=== PATIENT | male | born 1950 | race Two or more races ===

== ENCOUNTER 2021-10-21 05:14 | Inpatient (IN) | payer OTHER, MEDICAID ==
[2021-10-21] VITALS (44 sets, daily range): BP systolic 78–205; BP diastolic 41–115
[~2021-10-21] VITALS: Ht 182.9 cm; Wt 137.9 kg
[~2021-10-21 05:14] MED LIST: ASPI1TAB20 PO; FURO1TAB33 PO; GLIP5TAB12 PO; INSLANTI SC; INSLISPI SC; LISI20TA28 PO; METF-372 PO; METO-158 PO; SIMV-13 PO
[2021-10-21] MEDS ORDERED: PIPERACILLIN-TAZO 4.5GM 100 ML IV ONE (06:00)
[2021-10-21] MEDS ORDERED: VANCOMYCIN 1GM/250ML 250 ML IV ONE ×2 (06:00)
[2021-10-21] MEDS ORDERED: ACETAMINOPHEN 500 MG TAB PO ONE (06:00)
[2021-10-21] MEDS ORDERED: dilTIAZem 25 MG/5 ML VIAL IV ONE ×2 (06:39→06:45)
[2021-10-21] MEDS ORDERED: ACETAMINOPHEN 120 MG RECT SUPP PR ONE (06:44)
[2021-10-21] MEDS ORDERED: ACETAMINOPHEN 650 MG RECT SUPP PR ONE ×2 (06:45)
[2021-10-21] MEDS ORDERED: FUROSEMIDE 100 MG/10ML VIAL IV ONE (06:45)
[2021-10-21] MEDS ORDERED: dilTIAZem 125mg/125ml BAG KIT 125 ML IV ONE (06:45)
[2021-10-21 07:02] LABS: Basophils # (auto) 0.1 10 ^3/uL (0-0.2); Eosinophils # (auto) 0 10 ^3/uL (0-0.8); Hematocrit 46.7 % (41.0-53.0); Lymphocytes # (auto) 1.1 10 ^3/uL (0.4-5.4); Mean Corpuscular Hemoglobin 32.5 pg (28.0-32.0); Mean Corpuscular Hgb Conc. 34.2 g/dL (32.0-36.0); Mean Corpuscular Volume 95.2 fL (80.0-100.0); Monocytes # (auto) 0.2 10 ^3/uL (0-1.3); Neutrophils # (auto) 7.9 10 ^3/uL (1.6-8.6); Nucleated Red Blood Cells % 0.3 %; Red Cell Distribution Width 15.3 % (11.8-14.3); White Blood Cell 9.3 10^3/uL (4.4-10.8)
[2021-10-21 07:36] LABS: Potassium 4.9 mmol/L (3.5-5.1)
[2021-10-21 08:10] LABS: INR 1.42 (0.9-1.15); Partial Thromboplastin Time 29.3 sec (23.6-33.0)
[2021-10-21 08:13] LABS: Albumin 3.1 g/dL (3.4-5.0); BUN/Creatinine Ratio 20.4; Bilirubin, Total 3.2 mg/dL (0.2-1.0); Calcium 8.7 mg/dL (8.5-10.1)
[2021-10-21 08:29] LABS: Urine Bacteria MANY /hpf (None Seen); Urine Blood 3+ /uL (Negative); Urine Specific Gravity 1.011 (1.001-1.035); Urine WBC 194 /hpf (0 - 3); Urine WBC Clumps PRESENT /hpf (None Seen)
[2021-10-21] MEDS: NOREPINEPHRINE 8 MG/250ML KIT 250 ML IV SCH (08:30)
[2021-10-21] MEDS ORDERED: ASPirin 325 MG TAB PO ONE (08:45)
[2021-10-21] MEDS ORDERED: NOREPINEPHRINE 8 MG/250ML KIT 250 ML IV ONE (08:52)
[2021-10-21] MEDS ORDERED: DEXTROSE (50%) 50ML SYRG IV PRN (09:00)
[2021-10-21] MEDS ORDERED: VANCOMYCIN PER PHARMACY 0 MG IV SCH (09:00)
[2021-10-21] MEDS ORDERED: DOCUSATE SOD 100 MG CAP PO PRN (09:00)
[2021-10-21] MEDS: cefTRIAXone 1GM/50ML D5W 50 ML IV SCH (09:16)
[2021-10-21] MEDS: ASPirin 81 mg TAB PO SCH (09:22)
[2021-10-21] MEDS: MULTIPLE VITAMIN TAB PO SCH (09:23)
[2021-10-21] MEDS: ASCORBIC ACID 500 MG TAB PO SCH ×2 (09:23→21:15)
[2021-10-21] MEDS: ZINC SULFATE 220mg CAP or TAB PO SCH (09:23)
[2021-10-21] MEDS: FUROSEMIDE 40 MG/4 ML VIAL IV SCH (09:24)
[2021-10-21] MEDS ORDERED: MORPHINE SULFATE INJECTION 2 MG/ML SYRG IV PRN (09:30)
[2021-10-21] MEDS ORDERED: NITROGLYCERIN 0.4 MG SL TAB SL PRN (09:30)
[2021-10-21] MEDS ORDERED: dilTIAZem HCL 180MG ER CAP PO SCH (10:00)
[2021-10-21] MEDS ORDERED: METOPROLOL TARTRATE 25 MG TAB PO SCH (10:00)
[2021-10-21] MEDS: AZITHROMYCIN 500MG/ 250ML 250 ML IV SCH (10:12)
[2021-10-21] MEDS ORDERED: InsuLIN REG 1unit/0.01ml Soln (100units/ml) SC SCH ×2 (11:30→22:00)
[2021-10-21] MEDS ORDERED: ACCU-CHEK COMFORT CURVE STRIP VI SCH (11:30)
[2021-10-21] MEDS: SODIUM CHLOR 0.9% PF (SALINE LOCK) 10ML VIAL/SYR IV SCH ×2 (14:45→21:15)
[2021-10-21] MEDS ORDERED: SODIUM CHLORIDE 0.9% 500 ML IV STA (17:29)
[2021-10-21] MEDS: ACCU-CHEK COMFORT CURVE STRIP VI SCH ×2 (17:35→21:16)
[2021-10-21] MEDS: InsuLIN REG 1unit/0.01ml Soln (100units/ml) SC SCH ×2 (17:35→21:21)
[2021-10-21] MEDS: ACETAMINOPHEN 325 MG TAB PO PRN (18:20)
[2021-10-21] MEDS: INSULIN LANTUS (GLARGINE) 1 /0.01ml (100units/ml) SC SCH (18:35)
[2021-10-21 19:55] LABS: Lactic Acid w/Reflex 6.2 mmol/L (0.4-2.0)
[2021-10-21 19:57] LABS: Hematocrit 41.7 % (41.0-53.0); Hemoglobin 14.3 g/dL (13.5-17.5); Mean Corpuscular Hemoglobin 32.5 pg (28.0-32.0); Mean Corpuscular Hgb Conc. 34.2 g/dL (32.0-36.0); Red Blood Cells 4.39 10^6/uL (4.5-5.90); Red Cell Distribution Width 15.4 % (11.8-14.3); White Blood Cell 3.9 10^3/uL (4.4-10.8)
[2021-10-21 20:09] LABS: Basophils % (manual) 0 (0.0-2.0); Blast Cells 0; Eosinophils % (manual) 0 (0-7); Metamyelocytes % 0; Myelocytes % 0; Promyelocytes % 0; Reactive Lymphocytes 0
[2021-10-21 20:17] LABS: Albumin 3.2 g/dL (3.4-5.0); Calcium 8.9 mg/dL (8.5-10.1); Potassium 5.2 mmol/L (3.5-5.1)
[2021-10-21 20:19] LABS: BUN/Creatinine Ratio 19.6
[2021-10-21 20:21] LABS: Bilirubin, Total 3.4 mg/dL (0.2-1.0); Total Protein 8.1 g/dL (6.4-8.2)
[2021-10-21 20:42] LABS: Band Neutrophils % (manual) 10; Lymphocytes % (manual) 15 (10.0-50.0); Monocytes % (manual) 7 (0-12)
[2021-10-21] MEDS: HEPARIN SODIUM (PORCINE) 5000 UNITS/ML 1ML VIAL SC SCH (21:08)
[2021-10-21] MEDS ORDERED: INSULIN LANTUS (GLARGINE) 1 /0.01ml (100units/ml) SC SCH (22:00)
[2021-10-21] MEDS ORDERED: ATORVASTATIN 20 MG TAB PO SCH (22:00)
[2021-10-21] MEDS ORDERED: traMADol HCL 50 MG TAB PO ONE (22:15)
[2021-10-22] VITALS (73 sets, daily range): BP systolic 78–132; BP diastolic 30–69
[2021-10-22] MEDS: ONDANSETRON HCL 4 MG/2 ML VIAL IV PRN ×3 (00:56→09:40)
[2021-10-22] MEDS: ACETAMINOPHEN 325 MG TAB PO PRN (01:12)
[2021-10-22] MEDS: ACCU-CHEK COMFORT CURVE STRIP VI SCH ×6 (02:00→22:28)
[2021-10-22] MEDS: InsuLIN REG 1unit/0.01ml Soln (100units/ml) SC SCH ×6 (03:16→22:29)
[2021-10-22 04:13] LABS: Hematocrit 39.9 % (41.0-53.0); Hemoglobin 13.4 g/dL (13.5-17.5); Mean Corpuscular Hemoglobin 31.8 pg (28.0-32.0); Mean Corpuscular Hgb Conc. 33.7 g/dL (32.0-36.0); Mean Corpuscular Volume 94.5 fL (80.0-100.0); Red Blood Cells 4.22 10^6/uL (4.5-5.90); Red Cell Distribution Width 15.5 % (11.8-14.3); White Blood Cell 21.6 10^3/uL (4.4-10.8)
[2021-10-22 04:27] LABS: Basophils % (manual) 0 (0.0-2.0); Blast Cells 0; Eosinophils % (manual) 0 (0-7); Metamyelocytes % 0; Promyelocytes % 0; Reactive Lymphocytes 0
[2021-10-22 04:33] LABS: Potassium 4.5 mmol/L (3.5-5.1)
[2021-10-22 04:41] LABS: Albumin 2.3 g/dL (3.4-5.0); BUN/Creatinine Ratio 17.2; Total Protein 6.8 g/dL (6.4-8.2)
[2021-10-22] MEDS: SODIUM CHLOR 0.9% PF (SALINE LOCK) 10ML VIAL/SYR IV SCH ×3 (06:00→22:27)
[2021-10-22 06:23] LABS: Monocytes % (manual) 7 (0-12); Myelocytes % 5
[2021-10-22 06:24] LABS: Band Neutrophils % (manual) 37; Lymphocytes % (manual) 5 (10.0-50.0)
[2021-10-22] MEDS: NOREPINEPHRINE 8 MG/250ML KIT 250 ML IV SCH (08:57)
[2021-10-22] MEDS: cefTRIAXone 1GM/50ML D5W 50 ML IV SCH (08:58)
[2021-10-22] MEDS ORDERED: SODIUM CHLORIDE 0.9% 1,000 ML IV SCH (09:00)
[2021-10-22] MEDS: ASPirin 81 mg TAB PO SCH (09:41)
[2021-10-22] MEDS: AZITHROMYCIN 500MG/ 250ML 250 ML IV SCH (09:41)
[2021-10-22] MEDS: ZINC SULFATE 220mg CAP or TAB PO SCH (09:41)
[2021-10-22] MEDS: MULTIPLE VITAMIN TAB PO SCH (09:42)
[2021-10-22] MEDS: FUROSEMIDE 40 MG/4 ML VIAL IV SCH (09:42)
[2021-10-22] MEDS: PANTOPRAZOLE 40 MG/10 ML VIAL INJ IV SCH (09:44)
[2021-10-22] MEDS: INSULIN LANTUS (GLARGINE) 1 /0.01ml (100units/ml) SC SCH ×2 (10:00→22:29)
[2021-10-22] MEDS: HEPARIN SODIUM (PORCINE) 5000 UNITS/ML 1ML VIAL SC SCH (10:09)
[2021-10-22] MEDS ORDERED: PROMETHAZINE HCL 25 MG/ML 1ML IV PRN (12:00)
[2021-10-22] MEDS ORDERED: HEPARIN SODIUM (PORCINE) 5000 UNITS/ML 1ML VIAL IV ONE (12:30)
[2021-10-22] MEDS ORDERED: MECL1TAB42 PO (12:34)
[2021-10-22] MEDS ORDERED: TRAM50TA2 PO (12:34)
[2021-10-22] MEDS ORDERED: LEVO100T8 PO (12:34)
[2021-10-22] MEDS ORDERED: MET50T GT (12:34)
[2021-10-22] MEDS ORDERED: FURO40TA4 PO (12:38)
[2021-10-22] MEDS ORDERED: SPIR50TA5 PO (12:38)
[2021-10-22] MEDS ORDERED: TERA2CAP45 PO (12:38)
[2021-10-22] MEDS ORDERED: POTA1TAB61 PO (12:38)
[2021-10-22] MEDS ORDERED: BUME2TAB5 PO (12:38)
[2021-10-22] MEDS ORDERED: CETI10TA2 PO (12:41)
[2021-10-22] MEDS ORDERED: VANCOMYCIN 500 MG in D5W 5% 100 ML IV ONE (14:00)
[2021-10-22 15:48] LABS: INR 1.62 (0.9-1.15); Partial Thromboplastin Time 33.1 sec (23.6-33.0)
[2021-10-22] MEDS ORDERED: LIDOCAINE 1% (LOCAL ANESTH.) PF 5ml SDV ID ONE (16:30)
[2021-10-22] MEDS: HEPARIN DRIP/D5W 100UNITS/ML 250 ML IV SCH (17:52)
[2021-10-22] MEDS: ATORVASTATIN 20 MG TAB PO SCH (22:00)
[2021-10-23] VITALS (81 sets, daily range): BP systolic 102–138; BP diastolic 35–83
[2021-10-23 01:30] LABS: INR 1.49 (0.9-1.15); Partial Thromboplastin Time 43.9 sec (23.6-33.0)
[2021-10-23] MEDS: InsuLIN REG 1unit/0.01ml Soln (100units/ml) SC SCH ×6 (02:27→22:11)
[2021-10-23] MEDS: ACCU-CHEK COMFORT CURVE STRIP VI SCH ×6 (02:27→22:00)
[2021-10-23 05:37] LABS: Hematocrit 38.8 % (41.0-53.0); Hemoglobin 13.2 g/dL (13.5-17.5); Mean Corpuscular Hgb Conc. 34.1 g/dL (32.0-36.0); Mean Corpuscular Volume 93.8 fL (80.0-100.0); Red Blood Cells 4.13 10^6/uL (4.5-5.90); Red Cell Distribution Width 15.5 % (11.8-14.3); White Blood Cell 10.7 10^3/uL (4.4-10.8)
[2021-10-23 05:52] LABS: Basophils % (manual) 0 (0.0-2.0); Blast Cells 0; Eosinophils % (manual) 0 (0-7); Metamyelocytes % 0; Myelocytes % 0; Promyelocytes % 0; Reactive Lymphocytes 0
[2021-10-23 06:56] LABS: Potassium 4.5 mmol/L (3.5-5.1)
[2021-10-23 07:24] LABS: Band Neutrophils % (manual) 16; Lymphocytes % (manual) 10 (10.0-50.0); Monocytes % (manual) 1 (0-12)
[2021-10-23 07:43] LABS: INR 1.42 (0.9-1.15); Partial Thromboplastin Time 38.2 sec (23.6-33.0)
[2021-10-23] MEDS: HEPARIN DRIP/D5W 100UNITS/ML 250 ML IV SCH ×3 (08:00→15:00)
[2021-10-23] MEDS: NOREPINEPHRINE 8 MG/250ML KIT 250 ML IV SCH (08:34)
[2021-10-23] MEDS: cefTRIAXone 1GM/50ML D5W 50 ML IV SCH (08:51)
[2021-10-23] MEDS: ASPirin 81 mg TAB PO SCH (10:00)
[2021-10-23] MEDS: ZINC SULFATE 220mg CAP or TAB PO SCH (10:00)
[2021-10-23] MEDS: FUROSEMIDE 40 MG/4 ML VIAL IV SCH (10:00)
[2021-10-23] MEDS: AZITHROMYCIN 500MG/ 250ML 250 ML IV SCH (10:00)
[2021-10-23] MEDS: SODIUM CHLOR 0.9% PF (SALINE LOCK) 10ML VIAL/SYR IV SCH ×2 (10:00→22:12)
[2021-10-23] MEDS: PANTOPRAZOLE 40 MG/10 ML VIAL INJ IV SCH (10:00)
[2021-10-23] MEDS: MULTIPLE VITAMIN TAB PO SCH (10:00)
[2021-10-23] MEDS: INSULIN LANTUS (GLARGINE) 1 /0.01ml (100units/ml) SC SCH ×2 (10:20→22:11)
[2021-10-23] MEDS ORDERED: VANCOMYCIN 500 MG in D5W 5% 100 ML IV ONE (12:00)
[2021-10-23] MEDS: HYDROcodone-ACET 5/325MG TAB PO PRN ×2 (13:16→21:09)
[2021-10-23] MEDS: ACETAMINOPHEN 325 MG TAB PO PRN ×2 (13:17→23:55)
[2021-10-23 14:59] LABS: INR 1.33 (0.9-1.15); Partial Thromboplastin Time 39.1 sec (23.6-33.0)
[2021-10-23 21:24] LABS: INR 1.3 (0.9-1.15); Partial Thromboplastin Time 42.2 sec (23.6-33.0)
[2021-10-23] MEDS: ATORVASTATIN 20 MG TAB PO SCH (22:12)
[2021-10-24] VITALS (45 sets, daily range): BP systolic 104–157; BP diastolic 50–104
[2021-10-24] MEDS: InsuLIN REG 1unit/0.01ml Soln (100units/ml) SC SCH ×6 (01:52→22:31)
[2021-10-24] MEDS: HYDROcodone-ACET 5/325MG TAB PO PRN ×2 (01:52→09:50)
[2021-10-24] MEDS: ACCU-CHEK COMFORT CURVE STRIP VI SCH ×6 (01:52→22:32)
[2021-10-24 04:14] LABS: Hematocrit 37.9 % (41.0-53.0); Hemoglobin 13.1 g/dL (13.5-17.5); Mean Corpuscular Hemoglobin 32.1 pg (28.0-32.0); Mean Corpuscular Hgb Conc. 34.5 g/dL (32.0-36.0); Mean Corpuscular Volume 92.9 fL (80.0-100.0); Red Blood Cells 4.08 10^6/uL (4.5-5.90); Red Cell Distribution Width 15.4 % (11.8-14.3); White Blood Cell 7.2 10^3/uL (4.4-10.8)
[2021-10-24 04:26] LABS: INR 1.27 (0.9-1.15); Partial Thromboplastin Time 53.5 sec (23.6-33.0)
[2021-10-24 04:29] LABS: Band Neutrophils % (manual) 0; Basophils % (manual) 0 (0.0-2.0); Blast Cells 0; Eosinophils % (manual) 0 (0-7); Metamyelocytes % 0; Myelocytes % 0; Promyelocytes % 0; Reactive Lymphocytes 0
[2021-10-24 04:36] LABS: BUN/Creatinine Ratio 31.4; Calcium 8.1 mg/dL (8.5-10.1)
[2021-10-24 04:57] LABS: Lymphocytes % (manual) 18 (10.0-50.0); Monocytes % (manual) 16 (0-12)
[2021-10-24] MEDS: HEPARIN DRIP/D5W 100UNITS/ML 250 ML IV SCH ×2 (06:48→22:00)
[2021-10-24] MEDS: NOREPINEPHRINE 8 MG/250ML KIT 250 ML IV SCH (09:00)
[2021-10-24] MEDS: cefTRIAXone 1GM/50ML D5W 50 ML IV SCH (09:08)
[2021-10-24] MEDS: AZITHROMYCIN 500MG/ 250ML 250 ML IV SCH (09:46)
[2021-10-24] MEDS: FUROSEMIDE 40 MG/4 ML VIAL IV SCH (09:46)
[2021-10-24] MEDS: PANTOPRAZOLE 40 MG/10 ML VIAL INJ IV SCH (09:46)
[2021-10-24] MEDS: ASPirin 81 mg TAB PO SCH (09:47)
[2021-10-24] MEDS: SODIUM CHLOR 0.9% PF (SALINE LOCK) 10ML VIAL/SYR IV SCH ×2 (09:47→22:30)
[2021-10-24] MEDS: MULTIPLE VITAMIN TAB PO SCH (09:47)
[2021-10-24] MEDS: ZINC SULFATE 220mg CAP or TAB PO SCH (09:47)
[2021-10-24 10:01] LABS: Protein, Urine 52.6 mg/dL (0.0-11.9)
[2021-10-24] MEDS: INSULIN LANTUS (GLARGINE) 1 /0.01ml (100units/ml) SC SCH ×2 (10:03→22:32)
[2021-10-24 11:50] LABS: INR 1.24 (0.9-1.15); Partial Thromboplastin Time 51.4 sec (23.6-33.0)
[2021-10-24] MEDS ORDERED: VANCOMYCIN 500 MG in D5W 5% 100 ML IV ONE (12:00)
[2021-10-24] MEDS: ACETAMINOPHEN 325 MG TAB PO PRN ×2 (13:30→21:59)
[2021-10-24] MEDS ORDERED: PREG150C PO (16:42)
[2021-10-24 19:06] LABS: INR 1.28 (0.9-1.15); Partial Thromboplastin Time 51.5 sec (23.6-33.0)
[2021-10-24] MEDS: ATORVASTATIN 20 MG TAB PO SCH (22:30)
[2021-10-24] MEDS: PREGABALIN CAPSULE 75 MG CAP PO SCH (22:30)
[2021-10-25] VITALS (24 sets, daily range): BP systolic 115–146; BP diastolic 52–72
[2021-10-25] MEDS: InsuLIN REG 1unit/0.01ml Soln (100units/ml) SC SCH ×6 (02:00→22:47)
[2021-10-25] MEDS: ACCU-CHEK COMFORT CURVE STRIP VI SCH ×6 (02:00→22:48)
[2021-10-25 04:12] LABS: Basophils # (auto) 0.1 10 ^3/uL (0-0.2); Eosinophils # (auto) 0.1 10 ^3/uL (0-0.8); Eosinophils % (auto) 1.4 % (0.0-7.0); Hematocrit 41.3 % (41.0-53.0); Hemoglobin 14.3 g/dL (13.5-17.5); Lymphocytes # (auto) 1.3 10 ^3/uL (0.4-5.4); Lymphocytes % (auto) 26.2 % (10.0-50.0); Mean Corpuscular Hemoglobin 32.1 pg (28.0-32.0); Mean Corpuscular Hgb Conc. 34.6 g/dL (32.0-36.0); Mean Corpuscular Volume 92.8 fL (80.0-100.0); Monocytes # (auto) 0.8 10 ^3/uL (0-1.3); Monocytes % (auto) 16.3 % (0.0-12.0); Neutrophils # (auto) 2.8 10 ^3/uL (1.6-8.6); Neutrophils % (auto) 55.1 % (37.0-80.0); Nucleated Red Blood Cells % 0.1 %; Red Blood Cells 4.45 10^6/uL (4.5-5.90); Red Cell Distribution Width 15.2 % (11.8-14.3); White Blood Cell 5.1 10^3/uL (4.4-10.8)
[2021-10-25] MEDS: PREGABALIN CAPSULE 75 MG CAP PO SCH ×3 (06:00→22:47)
[2021-10-25] MEDS: cefTRIAXone 1GM/50ML D5W 50 ML IV SCH (08:51)
[2021-10-25] MEDS: FUROSEMIDE 40 MG/4 ML VIAL IV SCH (08:52)
[2021-10-25] MEDS: NOREPINEPHRINE 8 MG/250ML KIT 250 ML IV SCH (09:00)
[2021-10-25] MEDS: AZITHROMYCIN 500MG/ 250ML 250 ML IV SCH (10:00)
[2021-10-25] MEDS: SODIUM CHLOR 0.9% PF (SALINE LOCK) 10ML VIAL/SYR IV SCH ×2 (10:00→22:46)
[2021-10-25] MEDS: ZINC SULFATE 220mg CAP or TAB PO SCH (10:00)
[2021-10-25] MEDS: MULTIPLE VITAMIN TAB PO SCH (10:00)
[2021-10-25] MEDS: ASPirin 81 mg TAB PO SCH (10:00)
[2021-10-25] MEDS: INSULIN LANTUS (GLARGINE) 1 /0.01ml (100units/ml) SC SCH ×2 (10:00→22:48)
[2021-10-25] MEDS: PANTOPRAZOLE 40 MG/10 ML VIAL INJ IV SCH (10:00)
[2021-10-25] MEDS ORDERED: VANCOMYCIN 1GM/250ML 250 ML IV ONE (12:00)
[2021-10-25 13:15] LABS: Hepatitis C Antibody Negative (Negative)
[2021-10-25] MEDS: HEPARIN DRIP/D5W 100UNITS/ML 250 ML IV SCH (14:24)
[2021-10-25] MEDS: HYDROcodone-ACET 5/325MG TAB PO PRN ×2 (16:32→21:15)
[2021-10-25 20:24] LABS: INR 1.33 (0.9-1.15); Partial Thromboplastin Time 49.4 sec (23.6-33.0)
[2021-10-25] MEDS: ATORVASTATIN 20 MG TAB PO SCH (22:46)
[2021-10-25] MEDS: METOPROLOL TARTRATE 50 MG TAB PO SCH (22:47)
[2021-10-26] VITALS (9 sets, daily range): BP systolic 111–167; BP diastolic 52–77
[2021-10-26] MEDS: InsuLIN REG 1unit/0.01ml Soln (100units/ml) SC SCH ×6 (02:00→22:12)
[2021-10-26] MEDS: ACCU-CHEK COMFORT CURVE STRIP VI SCH ×6 (02:00→22:10)
[2021-10-26] MEDS: HEPARIN DRIP/D5W 100UNITS/ML 250 ML IV SCH ×2 (03:00→21:34)
[2021-10-26 03:55] LABS: INR 1.32 (0.9-1.15)
[2021-10-26 03:59] LABS: Partial Thromboplastin Time 71.4 sec (23.6-33.0)
[2021-10-26] MEDS: PREGABALIN CAPSULE 75 MG CAP PO SCH ×3 (06:00→22:10)
[2021-10-26] MEDS: LEVOTHYROXINE SODIUM 100 MCG TAB PO SCH (07:00)
[2021-10-26 11:08] LABS: INR 1.3 (0.9-1.15); Partial Thromboplastin Time 64.1 sec (23.6-33.0)
[2021-10-26] MEDS: cefTRIAXone 1GM/50ML D5W 50 ML IV SCH (11:37)
[2021-10-26] MEDS: VANCOMYCIN 1GM/250ML 250 ML IV SCH ×2 (11:38→22:07)
[2021-10-26] MEDS: FUROSEMIDE 40 MG/4 ML VIAL IV SCH (11:38)
[2021-10-26] MEDS: PANTOPRAZOLE 40 MG/10 ML VIAL INJ IV SCH (11:38)
[2021-10-26] MEDS: SODIUM CHLOR 0.9% PF (SALINE LOCK) 10ML VIAL/SYR IV SCH ×2 (11:38→22:07)
[2021-10-26] MEDS: TERAZOSIN HCL 1 MG CAP PO SCH (11:39)
[2021-10-26] MEDS: ASPirin 81 mg TAB PO SCH (11:39)
[2021-10-26] MEDS: AZITHROMYCIN 500MG/ 250ML 250 ML IV SCH (11:39)
[2021-10-26] MEDS: ZINC SULFATE 220mg CAP or TAB PO SCH (11:39)
[2021-10-26] MEDS: METOPROLOL TARTRATE 50 MG TAB PO SCH ×2 (11:40→22:10)
[2021-10-26] MEDS: MULTIPLE VITAMIN TAB PO SCH (11:40)
[2021-10-26] MEDS: INSULIN LANTUS (GLARGINE) 1 /0.01ml (100units/ml) SC SCH ×2 (11:42→22:11)
[2021-10-26] MEDS: HYDROcodone-ACET 5/325MG TAB PO PRN ×2 (14:30→22:19)
[2021-10-26 18:23] LABS: INR 1.3 (0.9-1.15)
[2021-10-26 19:35] LABS: Partial Thromboplastin Time 73.3 sec (23.6-33.0)
[2021-10-26] MEDS: ATORVASTATIN 20 MG TAB PO SCH (22:07)
[2021-10-27 00:18] LABS: INR 1.24 (0.9-1.15)
[2021-10-27 00:28] LABS: Partial Thromboplastin Time 78.8 sec (23.6-33.0)
[2021-10-27] MEDS: HEPARIN DRIP/D5W 100UNITS/ML 250 ML IV SCH (00:30)
[2021-10-27] MEDS: ACCU-CHEK COMFORT CURVE STRIP VI SCH ×4 (02:21→14:00)
[2021-10-27] MEDS: InsuLIN REG 1unit/0.01ml Soln (100units/ml) SC SCH ×6 (02:24→22:34)
[2021-10-27 05:00] VITALS: BP 125/54
[2021-10-27] MEDS: LEVOTHYROXINE SODIUM 100 MCG TAB PO SCH (06:04)
[2021-10-27] MEDS: PREGABALIN CAPSULE 75 MG CAP PO SCH ×3 (06:04→22:33)
[2021-10-27 06:50] LABS: BUN/Creatinine Ratio 27.1; Calcium 8.5 mg/dL (8.5-10.1); Potassium 4.4 mmol/L (3.5-5.1)
[2021-10-27 06:52] LABS: INR 1.21 (0.9-1.15)
[2021-10-27 08:46] VITALS: BP 112/58
[2021-10-27 09:27] LABS: Partial Thromboplastin Time 70.3 sec (23.6-33.0)
[2021-10-27] MEDS: cefTRIAXone 1GM/50ML D5W 50 ML IV SCH (09:48)
[2021-10-27] MEDS: VANCOMYCIN 1GM/250ML 250 ML IV SCH ×2 (09:48→22:00)
[2021-10-27] MEDS: SODIUM CHLOR 0.9% PF (SALINE LOCK) 10ML VIAL/SYR IV SCH ×2 (09:49→22:32)
[2021-10-27] MEDS: PANTOPRAZOLE 40 MG/10 ML VIAL INJ IV SCH (09:49)
[2021-10-27] MEDS: FUROSEMIDE 40 MG/4 ML VIAL IV SCH (09:49)
[2021-10-27] MEDS: ASPirin 81 mg TAB PO SCH (09:50)
[2021-10-27] MEDS: ZINC SULFATE 220mg CAP or TAB PO SCH (09:50)
[2021-10-27] MEDS: AZITHROMYCIN 500MG/ 250ML 250 ML IV SCH (09:50)
[2021-10-27] MEDS: METOPROLOL TARTRATE 50 MG TAB PO SCH ×2 (09:51→22:33)
[2021-10-27] MEDS: TERAZOSIN HCL 1 MG CAP PO SCH (09:51)
[2021-10-27] MEDS: MULTIPLE VITAMIN TAB PO SCH (09:51)
[2021-10-27] MEDS: ENOXAPARIN SOD 40 MG/0.4 ML SYRINGE SC SCH (09:52)
[2021-10-27] MEDS: INSULIN LANTUS (GLARGINE) 1 /0.01ml (100units/ml) SC SCH ×2 (11:57→22:34)
[2021-10-27 13:00] VITALS: BP 99/51
[2021-10-27 17:00] VITALS: BP 107/53
[2021-10-27 21:27] VITALS: BP 103/52
[2021-10-27] MEDS: ATORVASTATIN 20 MG TAB PO SCH (22:32)
[2021-10-28 05:00] VITALS: BP 128/73
[2021-10-28] MEDS: PREGABALIN CAPSULE 75 MG CAP PO SCH ×2 (06:47→13:03)
[2021-10-28] MEDS: LEVOTHYROXINE SODIUM 100 MCG TAB PO SCH (06:47)
[2021-10-28] MEDS: InsuLIN REG 1unit/0.01ml Soln (100units/ml) SC SCH ×3 (06:48→17:00)
[2021-10-28 07:16] LABS: Albumin 2.6 g/dL (3.4-5.0); BUN/Creatinine Ratio 31.4; Calcium 8.8 mg/dL (8.5-10.1); Potassium 4.6 mmol/L (3.5-5.1)
[2021-10-28 07:33] LABS: Bilirubin, Total 0.6 mg/dL (0.2-1.0); Total Protein 7.5 g/dL (6.4-8.2)
[2021-10-28 09:00] VITALS: BP 107/57
[2021-10-28] MEDS: AZITHROMYCIN 500MG/ 250ML 250 ML IV SCH (09:38)
[2021-10-28] MEDS: cefTRIAXone 1GM/50ML D5W 50 ML IV SCH (09:38)
[2021-10-28] MEDS: FUROSEMIDE 40 MG/4 ML VIAL IV SCH (09:39)
[2021-10-28] MEDS: SODIUM CHLOR 0.9% PF (SALINE LOCK) 10ML VIAL/SYR IV SCH (09:39)
[2021-10-28] MEDS: PANTOPRAZOLE 40 MG/10 ML VIAL INJ IV SCH (09:39)
[2021-10-28] MEDS: ENOXAPARIN SOD 40 MG/0.4 ML SYRINGE SC SCH (09:40)
[2021-10-28] MEDS: ASPirin 81 mg TAB PO SCH (09:40)
[2021-10-28] MEDS: METOPROLOL TARTRATE 50 MG TAB PO SCH (09:40)
[2021-10-28] MEDS: ZINC SULFATE 220mg CAP or TAB PO SCH (09:40)
[2021-10-28] MEDS: TERAZOSIN HCL 1 MG CAP PO SCH (09:41)
[2021-10-28] MEDS: MULTIPLE VITAMIN TAB PO SCH (09:41)
[2021-10-28] MEDS: INSULIN LANTUS (GLARGINE) 1 /0.01ml (100units/ml) SC SCH (10:01)
[2021-10-28] MEDS: VANCOMYCIN 1GM/250ML 250 ML IV SCH (10:45)
[2021-10-28 13:00] VITALS: BP 112/47
[2021-10-28] MEDS ORDERED: DOX100T PO (13:49)
[2021-10-28] MEDS ORDERED: ASPI1CHW15 PO (13:49)
[2021-10-28] MEDS ORDERED: FURO40TA4 PO (13:49)
[2021-10-28] MEDS ORDERED: MET50T PO (13:49)
[2021-10-28 16:10] VITALS: BP 112/57
[2021-10-28 17:41] VITALS: BP 98/51
[2021-10-28] MEDS ORDERED: DOXYCYCLINE 100 MG TAB/CAP PO SCH (22:00)
[2021-10-29] MEDS ORDERED: VANCOMYCIN 500 MG in D5W 5% 100 ML IV SCH (12:00)
== END 2021-10-28 19:06 | disposition home health service (06) | DRG 871 ==
LOC: EDBD 05:14 → ER 05:14 → TELE 09:27 → ICU WEST 11:26 → TELE-CENTR 10-26 05:30
PROVIDERS: ADMIT Nurse Practitioner Family; ATTEND Internal Medicine
PROC: 5A09357 Assistance with Respiratory Ventilation, Less than 24 Consecutive Hours, Continuous Positive Airway Pressure (ICD-10-PCS; principal; 2021-10-21)
PROC: 02HV33Z Insertion of Infusion Device into Superior Vena Cava, Percutaneous Approach (ICD-10-PCS; 2021-10-22)
PROC: B548ZZA Ultrasonography of Superior Vena Cava, Guidance (ICD-10-PCS; 2021-10-22)
DX: A41.50 Gram-negative sepsis, unspecified (principal); J96.01 Acute respiratory failure with hypoxia; R65.21 Severe sepsis with septic shock; J18.9 Pneumonia, unspecified organism; I21.4 Non-ST elevation (NSTEMI) myocardial infarction; N17.0 Acute kidney failure with tubular necrosis; N39.0 Urinary tract infection, site not specified; J98.11 Atelectasis; I13.0 Hypertensive heart and chronic kidney disease with heart failure and stage 1 through stage 4 chronic kidney disease, or unspecified chronic kidney disease; J44.0 Chronic obstructive pulmonary disease with (acute) lower respiratory infection; D69.6 Thrombocytopenia, unspecified; E66.01 Morbid (severe) obesity due to excess calories; I48.0 Paroxysmal atrial fibrillation; N18.30 Chronic kidney disease, stage 3 unspecified; Z68.35 Body mass index [BMI] 35.0-35.9, adult; E11.22 Type 2 diabetes mellitus with diabetic chronic kidney disease; E11.51 Type 2 diabetes mellitus with diabetic peripheral angiopathy without gangrene; I50.9 Heart failure, unspecified; Z20.822 Contact with and (suspected) exposure to COVID-19; E78.5 Hyperlipidemia, unspecified; I25.10 Atherosclerotic heart disease of native coronary artery without angina pectoris; I25.2 Old myocardial infarction; Z79.82 Long term (current) use of aspirin; Z91.14 Patient's other noncompliance with medication regimen; Z95.1 Presence of aortocoronary bypass graft; Z79.899 Other long term (current) drug therapy; Z90.49 Acquired absence of other specified parts of digestive tract
CPT/HCPCS: 36415; 36569; 36600; 71045; 71250; 76775; 78582; 80048; 80053; 80061; 80202; 81001; 82306; 82565; 82570; 82805; 82962; 83036; 83605; 83735; 83880; 83970; 84100; 84156; 84300; 84436; 84443; 84480; 84484; 85007; 85025; 85027; 85379; 85610; 85730; 86803; 87040; 87070; 87086; 87088; 87186; 87205; 87340; 87493; 93005; 93306; 94660; 96365; 96367; 96368; 96375; 97163; 99291; C9113; G0378; J0696; J1815; J2405; J2543; J7060

== ENCOUNTER 2023-07-19 00:07 | Inpatient (IN) | payer OTHER, MEDICAID ==
[~2023-07-19] VITALS: Ht 188 cm; Wt 133.2 kg
[~2023-07-19 00:07] MED LIST changes: +ASPI-736 PO; +DOX100T PO; -FURO1TAB33 PO; +FURO40TA4 PO; -GLIP5TAB12 PO; +LEVO100T8 PO; -LISI20TA28 PO; +MET50T PO; -METF-372 PO; -METO-158 PO; +PREG150C PO; -SIMV-13 PO; +SIMV40TA18 PO; +TERA2CAP45 PO; +TRAM50TA2 PO
[2023-07-19 01:15] LABS: Basophils # (auto) 0 10 ^3/uL (0-0.2); Basophils % (auto) 0.6 % (0.0-2.0); Eosinophils # (auto) 0 10 ^3/uL (0-0.8); Hematocrit 38.5 % (41.0-53.0); Hemoglobin 13.1 g/dL (13.5-17.5); Lymphocytes # (auto) 0.9 10 ^3/uL (0.4-5.4); Lymphocytes % (auto) 10.5 % (10.0-50.0); Mean Corpuscular Hemoglobin 31.2 pg (28.0-32.0); Mean Corpuscular Volume 91.9 fL (80.0-100.0); Monocytes # (auto) 0.9 10 ^3/uL (0-1.3); Monocytes % (auto) 11.2 % (0.0-12.0); Neutrophils # (auto) 6.6 10 ^3/uL (1.6-8.6); Neutrophils % (auto) 77.7 % (37.0-80.0); Nucleated Red Blood Cells % 0.5 %; Red Blood Cells 4.19 10^6/uL (4.5-5.90); Red Cell Distribution Width 14.9 % (11.8-14.3); White Blood Cell 8.5 10^3/uL (4.4-10.8)
[2023-07-19] MEDS ORDERED: ACETAMINOPHEN 500 MG TAB PO ONE (01:30)
[2023-07-19] MEDS ORDERED: ALBUTEROL SULF 2.5 MG/0.5ML(0.5%) NEB SOLN NEB ONE (01:30)
[2023-07-19] MEDS ORDERED: LACTATED RINGER'S 1,000 ML IV ONE (01:30)
[2023-07-19] MEDS ORDERED: DexAMETHasone SOD PHOS 10MG/1ML VIAL INJ IV ONE (01:30)
[2023-07-19] MEDS ORDERED: cefTRIAXone 1GM/50ML D5W 50 ML IV ONE (01:30)
[2023-07-19] MEDS ORDERED: AZITHROMYCIN 500MG/ 250ML 250 ML IV ONE (01:30)
[2023-07-19 01:34] LABS: INR 1.6 (0.9-1.15); Partial Thromboplastin Time 37.6 SEC (24.5-34.5); Prothrombin Time 16.3 sec (9.3-11.8)
[2023-07-19 01:35] LABS: Alanine Aminotransferase 17 U/L (7-40); Alkaline Phosphatase 71 U/L (46-116); Anion Gap 10 (5-15); Aspartate Aminotransferase 18 U/L (13-40); BUN/Creatinine Ratio 18.3 (10.0-20.0); Bilirubin, Total 2.2 mg/dL (0.2-1.0); Blood Urea Nitrogen 43 mg/dL (9-23); Calcium 8.7 mg/dL (8.7-10.4); Carbon Dioxide 24 mmol/L (20-30); Chloride 99 mmol/L (98-107); Glucose 270 mg/dL (74-106); Potassium 4.5 mmol/L (3.5-5.1); Sodium 133 mmol/L (136-145); Total Protein 7.3 g/dL (5.7-8.2)
[2023-07-19 01:38] VITALS: PULSE 77; RESP 16; O2SAT 97
[2023-07-19 01:57] LABS: Platelet Estimate Decreased
[2023-07-19] MEDS ORDERED: ASPirin-EC 325mg tab PO ONE (02:15)
[2023-07-19] MEDS ORDERED: MORPHINE SULFATE 4 MG/ML SYR/VIAL IV ONE (02:15)
[2023-07-19] MEDS ORDERED: ONDANSETRON HCL 4 MG/2 ML VIAL IV ONE (02:15)
[2023-07-19] MEDS ORDERED: ENOXAPARIN SOD 100 MG/1 ML SYRINGE SC ONE (03:45)
[2023-07-19 05:16] LABS: Erythrocyte Sedimentation Rate 58 mm/hr (0-20)
[2023-07-19 05:26] LABS: COVID19 ANTIGEN SOFIA FIA NEGATIVE (NEGATIVE); Rapid Influenza A Negative (Negative); Rapid Influenza B Negative (Negative)
[2023-07-19] MEDS ORDERED: MORPHINE SULFATE INJ 2 MG/ml SYRG IV PRN (07:15)
[2023-07-19] MEDS ORDERED: NITROGLYCERIN 0.4 MG SL TAB SL PRN (07:15)
[2023-07-19] MEDS ORDERED: DEXTROSE (50%) 50ML SYRG IV PRN ×2 (07:15→18:00)
[2023-07-19] MEDS ORDERED: ONDANSETRON HCL 4 MG/2 ML VIAL IV PRN (07:15)
[2023-07-19] MEDS ORDERED: ACETAMINOPHEN 325 MG TAB PO PRN (07:15)
[2023-07-19 07:40] VITALS: PULSE 65; RESP 16; O2SAT 97
[2023-07-19 08:01] LABS: Urine Bacteria MANY /hpf (None Seen); Urine Blood 3+ /uL (Negative); Urine Budding Yeast MODERATE /hpf (None Seen); Urine Clarity CLOUDY (Clear); Urine Color Yellow (Yellow); Urine Protein, UAD 1+ (Negative); Urine Specific Gravity 1.014 (1.001-1.035); Urine Sperm PRESENT /hpf (None Seen); Urine WBC 761 /hpf (0 - 3); Urine WBC Clumps PRESENT /hpf (None Seen)
[2023-07-19] MEDS ORDERED: SODIUM CHLORIDE 0.9% 1,000 ML IV SCH (09:00)
[2023-07-19] MEDS: SODIUM CHLORIDE 0.9% 1,000 ML IV SCH ×2 (09:24→17:28)
[2023-07-19] MEDS: APIXABAN 5 MG TAB PO SCH ×2 (10:46→21:49)
[2023-07-19] MEDS: SPIRONOLACTONE 25 MG TAB PO SCH (10:47)
[2023-07-19] MEDS: ASPirin 81 mg TAB PO SCH (10:47)
[2023-07-19] MEDS: METOPROLOL TARTRATE 50 MG TAB PO SCH ×2 (10:47→21:45)
[2023-07-19] MEDS: ACCU-CHEK COMFORT CURVE STRIP VI SCH ×3 (11:38→22:02)
[2023-07-19] MEDS: InsuLIN REG 1unit/0.01ml Soln (100units/ml) SC SCH ×3 (11:43→21:52)
[2023-07-19] MEDS ORDERED: BUME2TAB5 PO (16:45)
[2023-07-19] MEDS ORDERED: ATOR-47 PO (16:46)
[2023-07-19] MEDS ORDERED: CETI10CA10 PO (16:47)
[2023-07-19 16:48] VITALS: BP 125/50; PULSE 56; RESP 15; TEMP 97.6; O2SAT 98
[2023-07-19] MEDS ORDERED: FINA5TAB4 PO (16:48)
[2023-07-19] MEDS ORDERED: APIX5TAB PO (16:48)
[2023-07-19] MEDS ORDERED: GABA-1250 PO (16:49)
[2023-07-19] MEDS ORDERED: LEV100T PO (16:50)
[2023-07-19] MEDS ORDERED: METO5TAB5 PO (16:50)
[2023-07-19] MEDS ORDERED: SPIR50TA5 PO (16:51)
[2023-07-19] MEDS ORDERED: PREG200C19 PO (16:51)
[2023-07-19] MEDS ORDERED: TAMS0.4C36 PO (16:52)
[2023-07-19] MEDS: BUMETANIDE 1 MG TAB PO SCH (17:23)
[2023-07-19 20:00] VITALS: BP 104/59; PULSE 41; PULSE 54; PULSE 64; RESP 16; RESP 18; TEMP 97.4; O2SAT 97
[2023-07-19] MEDS: ATORVASTATIN 20 MG TAB PO SCH (21:50)
[2023-07-19] MEDS: CEFEPIME 1GM/ 50ML 50 ML IV SCH (21:50)
[2023-07-19 22:00] VITALS: BP 101/34; PULSE 50; RESP 17; TEMP 97.2; O2SAT 98
[2023-07-20] VITALS (7 sets, daily range): BP systolic 96–147; BP diastolic 45–59; PULSE 46–74; RESP 18–21; TEMP 97.5–97.7; O2SAT 96–100
[2023-07-20] MEDS: BUMETANIDE 1 MG TAB PO SCH ×2 (06:07→18:29)
[2023-07-20] MEDS: SODIUM CHLORIDE 0.9% 1,000 ML IV SCH (06:09)
[2023-07-20] MEDS: ACCU-CHEK COMFORT CURVE STRIP VI SCH ×4 (06:09→20:49)
[2023-07-20] MEDS: InsuLIN REG 1unit/0.01ml Soln (100units/ml) SC SCH ×4 (06:14→20:48)
[2023-07-20] MEDS ORDERED: LEVOTHYROXINE SODIUM 100 MCG TAB PO SCH (07:00)
[2023-07-20 07:16] LABS: Basophils # (auto) 0 10 ^3/uL (0-0.2); Basophils % (auto) 0.1 % (0.0-2.0); Eosinophils # (auto) 0 10 ^3/uL (0-0.8); Hematocrit 39.4 % (41.0-53.0); Hemoglobin 13.3 g/dL (13.5-17.5); Mean Corpuscular Hemoglobin 30.8 pg (28.0-32.0); Mean Corpuscular Hgb Conc. 33.8 g/dL (32.0-36.0); Mean Corpuscular Volume 91.1 fL (80.0-100.0); Monocytes # (auto) 0.9 10 ^3/uL (0-1.3); Monocytes % (auto) 8.2 % (0.0-12.0); Neutrophils # (auto) 8.8 10 ^3/uL (1.6-8.6); Neutrophils % (auto) 82.7 % (37.0-80.0); Nucleated Red Blood Cells % 0.2 %; Red Blood Cells 4.32 10^6/uL (4.5-5.90); Red Cell Distribution Width 14.6 % (11.8-14.3); White Blood Cell 10.6 10^3/uL (4.4-10.8)
[2023-07-20 07:32] LABS: Alanine Aminotransferase 25 U/L (7-40); Albumin 3.6 g/dL (3.2-4.8); Alkaline Phosphatase 60 U/L (46-116); Anion Gap 5 (5-15); Aspartate Aminotransferase 62 U/L (13-40); BUN/Creatinine Ratio 24.7 (10.0-20.0); Blood Urea Nitrogen 43 mg/dL (9-23); Calcium 8.6 mg/dL (8.7-10.4); Carbon Dioxide 28 mmol/L (20-30); Chloride 103 mmol/L (98-107); Glucose 275 mg/dL (74-106); Magnesium 1.9 mg/dL (1.6-2.6); Potassium 4.3 mmol/L (3.5-5.1); Sodium 136 mmol/L (136-145); Total Protein 6.8 g/dL (5.7-8.2)
[2023-07-20] MEDS ORDERED: cefTRIAXone 1GM/50ML D5W 50 ML IV SCH (09:00)
[2023-07-20] MEDS: CEFEPIME 1GM/ 50ML 50 ML IV SCH ×2 (09:39→20:58)
[2023-07-20] MEDS: ASPirin 81 mg TAB PO SCH (09:51)
[2023-07-20] MEDS: APIXABAN 5 MG TAB PO SCH ×2 (09:51→20:51)
[2023-07-20] MEDS: METOPROLOL TARTRATE 50 MG TAB PO SCH ×2 (09:51→21:08)
[2023-07-20] MEDS: SPIRONOLACTONE 25 MG TAB PO SCH (09:52)
[2023-07-20] MEDS ORDERED: PANTOPRAZOLE 40 MG TAB PO ONE (10:45)
[2023-07-20] MEDS: traMADol HCL 50 MG TAB PO PRN (11:37)
[2023-07-20] MEDS ORDERED: PREGABALIN 25 MG CAP PO ONE (14:00)
[2023-07-20] MEDS ORDERED: PREGABALIN CAPSULE 75 MG CAP PO ONE (14:00)
[2023-07-20] MEDS ORDERED: PATIENTS OWN MEDICATION (Pregabalin (Lyrica) 1 CAP) PO SCH (14:00)
[2023-07-20] MEDS: INSULIN LANTUS (GLARGINE) 1 /0.01ml (100units/ml) SC SCH (20:49)
[2023-07-20] MEDS: ATORVASTATIN 20 MG TAB PO SCH (20:52)
[2023-07-20] MEDS: PREGABALIN 200 MG PO SCH (20:58)
[2023-07-20] MEDS ORDERED: PREGABALIN CAPSULE 75 MG CAP PO SCH (22:00)
[2023-07-20] MEDS ORDERED: PREGABALIN 25 MG CAP PO SCH (22:00)
[2023-07-20] MEDS ORDERED: APIXABAN 5 MG TAB PO SCH (22:00)
[2023-07-21 05:00] VITALS: BP 106/47; PULSE 69; RESP 18; TEMP 97.7; O2SAT 100
[2023-07-21] MEDS: InsuLIN REG 1unit/0.01ml Soln (100units/ml) SC SCH ×4 (05:35→21:13)
[2023-07-21] MEDS: LEVOTHYROXINE SODIUM 100 MCG TAB PO SCH (05:37)
[2023-07-21] MEDS: BUMETANIDE 1 MG TAB PO SCH ×2 (05:37→17:43)
[2023-07-21] MEDS: PREGABALIN 200 MG PO SCH ×3 (05:37→21:08)
[2023-07-21] MEDS: ACCU-CHEK COMFORT CURVE STRIP VI SCH ×4 (05:37→21:14)
[2023-07-21 06:56] LABS: Basophils # (auto) 0 10 ^3/uL (0-0.2); Basophils % (auto) 0.3 % (0.0-2.0); Eosinophils # (auto) 0 10 ^3/uL (0-0.8); Eosinophils % (auto) 0.3 % (0.0-7.0); Hemoglobin 13.4 g/dL (13.5-17.5); Lymphocytes % (auto) 26.1 % (10.0-50.0); Mean Corpuscular Hemoglobin 31.3 pg (28.0-32.0); Mean Corpuscular Hgb Conc. 34.4 g/dL (32.0-36.0); Mean Corpuscular Volume 90.8 fL (80.0-100.0); Monocytes # (auto) 0.9 10 ^3/uL (0-1.3); Neutrophils # (auto) 4.6 10 ^3/uL (1.6-8.6); Neutrophils % (auto) 61.3 % (37.0-80.0); Red Blood Cells 4.29 10^6/uL (4.5-5.90); Red Cell Distribution Width 15.2 % (11.8-14.3); White Blood Cell 7.5 10^3/uL (4.4-10.8)
[2023-07-21 07:25] LABS: Alanine Aminotransferase 24 U/L (7-40); Alkaline Phosphatase 60 U/L (46-116); Anion Gap 7 (5-15); Calcium 8.5 mg/dL (8.7-10.4); Carbon Dioxide 28 mmol/L (20-30); Chloride 100 mmol/L (98-107); Glucose 232 mg/dL (74-106); Magnesium 1.7 mg/dL (1.6-2.6); Potassium 3.8 mmol/L (3.5-5.1); Sodium 135 mmol/L (136-145)
[2023-07-21 07:26] LABS: Albumin 3.7 g/dL (3.2-4.8); Aspartate Aminotransferase 53 U/L (13-40); BUN/Creatinine Ratio 27.3 (10.0-20.0); Blood Urea Nitrogen 51 mg/dL (9-23)
[2023-07-21 07:28] LABS: Total Protein 6.9 g/dL (5.7-8.2)
[2023-07-21 08:00] VITALS: BP 132/69; PULSE 63; PULSE 75; RESP 18; TEMP 97.5; O2SAT 99
[2023-07-21] MEDS ORDERED: GABAPENTIN 300 MG CAP PO SCH (10:00)
[2023-07-21] MEDS ORDERED: PATIENTS OWN MEDICATION (Atorvastatin Calcium 1 TAB) PO SCH (10:00)
[2023-07-21] MEDS ORDERED: PATIENTS OWN MEDICATION (Spironolactone 1 TAB) PO SCH (10:00)
[2023-07-21] MEDS ORDERED: ERTAPENEM SOD INJ 0.5 GM in SODIUM CHL 0.9% 50 ML IV ONE (10:30)
[2023-07-21] MEDS ORDERED: AZITHROMYCIN 500MG/ 250ML 250 ML IV ONE (10:39)
[2023-07-21] MEDS: AZITHROMYCIN 500MG/ 250ML 250 ML IV SCH (10:52)
[2023-07-21] MEDS: TAMSULOSIN HYDROCHLORIDE 0.4 MG CAP PO SCH (10:58)
[2023-07-21] MEDS: ASPirin 81 mg TAB PO SCH (10:58)
[2023-07-21] MEDS: FINASTERIDE 5 MG TAB PO SCH (10:59)
[2023-07-21] MEDS: TERAZOSIN HCL 1 MG CAP PO SCH (10:59)
[2023-07-21] MEDS: APIXABAN 5 MG TAB PO SCH ×2 (11:00→21:07)
[2023-07-21] MEDS: METOPROLOL TARTRATE 50 MG TAB PO SCH ×2 (11:00→21:32)
[2023-07-21] MEDS: PANTOPRAZOLE 40 MG TAB PO SCH (11:00)
[2023-07-21] MEDS: SPIRONOLACTONE 25 MG TAB PO SCH (11:01)
[2023-07-21] MEDS: traMADol HCL 50 MG TAB PO PRN (11:07)
[2023-07-21 12:00] VITALS: BP 99/64; PULSE 57; RESP 18; TEMP 97.5; O2SAT 96
[2023-07-21] MEDS: ERTAPENEM SOD INJ 1 GM in SODIUM CHL 0.9% 50 ML IV SCH (14:54)
[2023-07-21 16:00] VITALS: BP 115/62; PULSE 52; RESP 18; TEMP 97.9; O2SAT 96
[2023-07-21 20:00] VITALS: BP 113/56; PULSE 50; PULSE 51; RESP 18; TEMP 98; O2SAT 100
[2023-07-21] MEDS: ATORVASTATIN 20 MG TAB PO SCH (21:07)
[2023-07-21] MEDS: INSULIN LANTUS (GLARGINE) 1 /0.01ml (100units/ml) SC SCH (21:13)
[2023-07-21 22:00] VITALS: BP 113/56; PULSE 51; RESP 18; TEMP 98; O2SAT 100
[2023-07-22] VITALS (7 sets, daily range): BP systolic 95–131; BP diastolic 45–84; PULSE 54–82; RESP 18–20; TEMP 97.5–98.5; O2SAT 93–98
[2023-07-22 05:38] LABS: Chloride 98 mmol/L (98-107); Sodium 134 mmol/L (136-145)
[2023-07-22 05:39] LABS: Anion Gap 5 (5-15); Carbon Dioxide 31 mmol/L (20-30)
[2023-07-22 05:40] LABS: Calcium 8.8 mg/dL (8.7-10.4)
[2023-07-22 05:44] LABS: BUN/Creatinine Ratio 24.2 (10.0-20.0); Blood Urea Nitrogen 50 mg/dL (9-23); Glucose 182 mg/dL (74-106)
[2023-07-22] MEDS: LEVOTHYROXINE SODIUM 100 MCG TAB PO SCH (05:44)
[2023-07-22 05:46] LABS: Basophils # (auto) 0 10 ^3/uL (0-0.2); Basophils % (auto) 0.6 % (0.0-2.0); Eosinophils # (auto) 0.3 10 ^3/uL (0-0.8); Eosinophils % (auto) 3.8 % (0.0-7.0); Hematocrit 39.9 % (41.0-53.0); Hemoglobin 13.7 g/dL (13.5-17.5); Lymphocytes # (auto) 2.8 10 ^3/uL (0.4-5.4); Lymphocytes % (auto) 38.6 % (10.0-50.0); Mean Corpuscular Hgb Conc. 34.4 g/dL (32.0-36.0); Monocytes # (auto) 0.9 10 ^3/uL (0-1.3); Monocytes % (auto) 11.9 % (0.0-12.0); Neutrophils # (auto) 3.3 10 ^3/uL (1.6-8.6); Neutrophils % (auto) 45.1 % (37.0-80.0); Nucleated Red Blood Cells % 0.1 %; Red Blood Cells 4.43 10^6/uL (4.5-5.90); Red Cell Distribution Width 14.5 % (11.8-14.3); White Blood Cell 7.4 10^3/uL (4.4-10.8)
[2023-07-22] MEDS: PREGABALIN 200 MG PO SCH ×3 (05:49→23:06)
[2023-07-22] MEDS: traMADol HCL 50 MG TAB PO PRN (05:52)
[2023-07-22] MEDS: BUMETANIDE 1 MG TAB PO SCH ×2 (06:00→17:58)
[2023-07-22] MEDS: ACCU-CHEK COMFORT CURVE STRIP VI SCH ×4 (06:15→23:06)
[2023-07-22] MEDS: InsuLIN REG 1unit/0.01ml Soln (100units/ml) SC SCH ×4 (06:15→23:08)
[2023-07-22] MEDS: APIXABAN 5 MG TAB PO SCH ×2 (08:48→23:01)
[2023-07-22] MEDS: TAMSULOSIN HYDROCHLORIDE 0.4 MG CAP PO SCH (08:48)
[2023-07-22] MEDS: ERTAPENEM SOD INJ 1 GM in SODIUM CHL 0.9% 50 ML IV SCH (08:48)
[2023-07-22] MEDS: FINASTERIDE 5 MG TAB PO SCH (08:48)
[2023-07-22] MEDS: ASPirin 81 mg TAB PO SCH (08:49)
[2023-07-22] MEDS: PANTOPRAZOLE 40 MG TAB PO SCH (08:49)
[2023-07-22] MEDS: TERAZOSIN HCL 1 MG CAP PO SCH (08:50)
[2023-07-22] MEDS: SPIRONOLACTONE 25 MG TAB PO SCH (08:50)
[2023-07-22] MEDS: METOPROLOL TARTRATE 50 MG TAB PO SCH ×2 (08:51→23:01)
[2023-07-22] MEDS ORDERED: metOLazone 5 MG TAB PO SCH (10:00)
[2023-07-22] MEDS ORDERED: AZITHROMYCIN 500MG/ 250ML 250 ML IV ONE (10:21)
[2023-07-22] MEDS: AZITHROMYCIN 500MG/ 250ML 250 ML IV SCH (10:53)
[2023-07-22] MEDS ORDERED: ERTAPENEM SOD INJ 0.5 GM in SODIUM CHL 0.9% 50 ML IV SCH (12:00)
[2023-07-22] MEDS ORDERED: PREGABALIN CAPSULE 75 MG CAP ONE (22:15)
[2023-07-22] MEDS ORDERED: PREGABALIN 25 MG CAP ONE (22:21)
[2023-07-22] MEDS: ATORVASTATIN 20 MG TAB PO SCH (23:00)
[2023-07-22] MEDS: INSULIN LANTUS (GLARGINE) 1 /0.01ml (100units/ml) SC SCH (23:07)
[2023-07-23 05:00] VITALS: BP 107/55; PULSE 79; RESP 18; TEMP 97.9; O2SAT 94
[2023-07-23] MEDS: LEVOTHYROXINE SODIUM 100 MCG TAB PO SCH (06:02)
[2023-07-23] MEDS: BUMETANIDE 1 MG TAB PO SCH (06:02)
[2023-07-23] MEDS: ACCU-CHEK COMFORT CURVE STRIP VI SCH (06:03)
[2023-07-23] MEDS: PREGABALIN 200 MG PO SCH (06:04)
[2023-07-23] MEDS: InsuLIN REG 1unit/0.01ml Soln (100units/ml) SC SCH (06:12)
[2023-07-23] MEDS: METOPROLOL TARTRATE 50 MG TAB PO SCH (07:54)
[2023-07-23 08:00] VITALS: PULSE 60; PULSE 71; RESP 20; O2SAT 95
[2023-07-23 08:50] VITALS: BP 103/67; PULSE 69; RESP 20; TEMP 97.9; O2SAT 97
[2023-07-23] MEDS ORDERED: SPIR25TA PO (09:40)
[2023-07-23] MEDS: ASPirin 81 mg TAB PO SCH (09:40)
[2023-07-23] MEDS: FINASTERIDE 5 MG TAB PO SCH (09:40)
[2023-07-23] MEDS: TERAZOSIN HCL 1 MG CAP PO SCH (09:41)
[2023-07-23] MEDS: SPIRONOLACTONE 25 MG TAB PO SCH (09:41)
[2023-07-23] MEDS: APIXABAN 5 MG TAB PO SCH (09:41)
[2023-07-23] MEDS: TAMSULOSIN HYDROCHLORIDE 0.4 MG CAP PO SCH (09:42)
[2023-07-23] MEDS: ERTAPENEM SOD INJ 1 GM in SODIUM CHL 0.9% 50 ML IV SCH ×2 (09:42→11:00)
[2023-07-23] MEDS: AZITHROMYCIN 500MG/ 250ML 250 ML IV SCH (09:42)
[2023-07-23] MEDS: PANTOPRAZOLE 40 MG TAB PO SCH (09:42)
[2023-07-23 10:01] VITALS: BP 103/67; PULSE 60
== END 2023-07-23 13:42 | disposition home health service (06) | DRG 871 ==
LOC: EDBD 00:07 → ER 00:07 → TELE 07:02 → TELE-CENTR 14:35
PROVIDERS: ADMIT Nurse Practitioner; ATTEND Internal Medicine Geriatric Medicine
PROC: 05HC33Z Insertion of Infusion Device into Left Basilic Vein, Percutaneous Approach (ICD-10-PCS; principal; 2023-07-21)
PROC: B54NZZA Ultrasonography of Left Upper Extremity Veins, Guidance (ICD-10-PCS; 2023-07-21)
DX: A41.9 Sepsis, unspecified organism (principal); J15.69 Pneumonia due to other Gram-negative bacteria; N17.0 Acute kidney failure with tubular necrosis; J15.9 Unspecified bacterial pneumonia; N13.6 Pyonephrosis; J96.10 Chronic respiratory failure, unspecified whether with hypoxia or hypercapnia; E87.1 Hypo-osmolality and hyponatremia; I13.0 Hypertensive heart and chronic kidney disease with heart failure and stage 1 through stage 4 chronic kidney disease, or unspecified chronic kidney disease; I50.32 Chronic diastolic (congestive) heart failure; J44.0 Chronic obstructive pulmonary disease with (acute) lower respiratory infection; B96.89 Other specified bacterial agents as the cause of diseases classified elsewhere; E03.9 Hypothyroidism, unspecified; E66.01 Morbid (severe) obesity due to excess calories; N18.32 Chronic kidney disease, stage 3b; K76.0 Fatty (change of) liver, not elsewhere classified; N32.0 Bladder-neck obstruction; D69.6 Thrombocytopenia, unspecified; E11.22 Type 2 diabetes mellitus with diabetic chronic kidney disease; E11.42 Type 2 diabetes mellitus with diabetic polyneuropathy; E11.51 Type 2 diabetes mellitus with diabetic peripheral angiopathy without gangrene; E78.5 Hyperlipidemia, unspecified; I25.10 Atherosclerotic heart disease of native coronary artery without angina pectoris; I44.7 Left bundle-branch block, unspecified; I48.0 Paroxysmal atrial fibrillation; N40.1 Benign prostatic hyperplasia with lower urinary tract symptoms; F41.9 Anxiety disorder, unspecified; F32.A Depression, unspecified; R33.8 Other retention of urine; I34.81 Nonrheumatic mitral (valve) annulus calcification; Z20.822 Contact with and (suspected) exposure to COVID-19; Z79.4 Long term (current) use of insulin; Z79.82 Long term (current) use of aspirin; K52.9 Noninfective gastroenteritis and colitis, unspecified; Z79.899 Other long term (current) drug therapy; Z80.3 Family history of malignant neoplasm of breast; Z87.440 Personal history of urinary (tract) infections; Z90.49 Acquired absence of other specified parts of digestive tract; Z90.79 Acquired absence of other genital organ(s); Z95.1 Presence of aortocoronary bypass graft; Z95.5 Presence of coronary angioplasty implant and graft; Z99.81 Dependence on supplemental oxygen
CPT/HCPCS: 36415; 71045; 71250; 74176; 80048; 80053; 81001; 82010; 82962; 83605; 83735; 83880; 84484; 85025; 85610; 85652; 85730; 86141; 87040; 87086; 87088; 87186; 87426; 87804; 93005; 93306; 94640; 99291; G0378; J1100; J1335; J1815; J2405

== ENCOUNTER 2024-05-12 23:11 | Inpatient (IN) | payer OTHER, MEDICAID ==
[~2024-05-12] VITALS: Ht 188 cm; Wt 134.4 kg
[~2024-05-12 23:11] MED LIST changes: +APIX5TAB PO; -ASPI-736 PO; -ASPI1TAB20 PO; +ATOR-47 PO; +BUME2TAB5 PO; +CETI10CA10 PO; +CYAN100061 PO; -DOX100T PO; +DULO20CA PO; +FINA5TAB4 PO; -FURO40TA4 PO; +GABA-1250 PO; +INSU50IN6 SC; +LEVO-849 PO; +LIDO1PAD55 EX; +LINA1CAP2 PO; -MET50T PO; +METO5TAB5 PO; -PREG150C PO; +PREG200C19 PO; -SIMV40TA18 PO; +SPIR25TA PO; +SPIR50TA5 PO; +TAMS0.4C39 PO; -TERA2CAP45 PO; +TERA2CAP79 PO
[2024-05-13] VITALS (13 sets, daily range): BP systolic 91–122; BP diastolic 45–54; PULSE 20–97; RESP 13–20; TEMP 97.6–98.8; O2SAT 95–97
[2024-05-13 00:28] LABS: Basophils # (auto) 0.1 10 ^3/uL (0-0.2); Eosinophils # (auto) 0.1 10 ^3/uL (0-0.8); Eosinophils % (auto) 0.3 % (0.0-7.0); Hematocrit 21.3 % (41.0-53.0); Monocytes # (auto) 1.4 10 ^3/uL (0-1.3); Monocytes % (auto) 6.6 % (0.0-12.0)
[2024-05-13 00:31] LABS: Basophils % (auto) 0.3 % (0.0-2.0); Lymphocytes # (auto) 1.3 10 ^3/uL (0.4-5.4); Lymphocytes % (auto) 6.2 % (10.0-50.0); Mean Corpuscular Hemoglobin 28.1 pg (28.0-32.0); Mean Corpuscular Hgb Conc. 31.9 g/dL (32.0-36.0); Mean Corpuscular Volume 88.2 fL (80.0-100.0); Neutrophils # (auto) 18.3 10 ^3/uL (1.6-8.6); Neutrophils % (auto) 86.6 % (37.0-80.0); Nucleated Red Blood Cells % 0.1 %; Platelet Count (auto) 199 10^3/uL (140-450); Red Blood Cells 2.42 10^6/uL (4.5-5.90); Red Cell Distribution Width 18.8 % (11.8-14.3); White Blood Cell 21.2 10^3/uL (4.4-10.8)
[2024-05-13 00:40] LABS: Hemoglobin 6.8 g/dL (13.5-17.5)
[2024-05-13 00:41] LABS: Alanine Aminotransferase 20 U/L (7-40); Albumin 3.3 g/dL (3.2-4.8); Alkaline Phosphatase 165 U/L (46-116); Anion Gap 10 (5-15); Aspartate Aminotransferase 33 U/L (13-40); BUN/Creatinine Ratio 23.3 (10.0-20.0); Bilirubin, Total 0.7 mg/dL (0.2-1.0); Calcium 8.8 mg/dL (8.7-10.4); Carbon Dioxide 19 mmol/L (20-31); Chloride 90 mmol/L (98-107); Lipase 65 U/L (12-53); Total Protein 8.1 g/dL (5.7-8.2)
[2024-05-13 00:47] LABS: Blood Urea Nitrogen 94 mg/dL (9-23); Glucose 576 mg/dL (74-106); Potassium 5.7 mmol/L (3.5-5.1); Sodium 119 mmol/L (136-145)
[2024-05-13] MEDS: VANCOMYCIN 1GM/200ML PREMIX 200 ML IV ONE (01:27)
[2024-05-13] MEDS: SODIUM CHLORIDE 0.9% 2,000 ML IV ONE (01:48)
[2024-05-13 01:53] LABS: Lactic Acid w/Reflex 5.6 mmol/L (0.4-2.0)
[2024-05-13] MEDS: InsuLIN REG 1unit/0.01ml Soln (100units/ml) IV ONE ×2 (02:09→15:58)
[2024-05-13] MEDS: ALBUTEROL SULF 2.5 MG/0.5ML(0.5%) NEB SOLN NEB ONE (02:11)
[2024-05-13] MEDS: SODIUM BICARB 8.4% 50Meq/50ml SYR INJ IV ONE (02:14)
[2024-05-13] MEDS: cefTRIAXone 2GM/50ML D5W 50 ML IV ONE (03:08)
[2024-05-13] MEDS: SODIUM CHLORIDE 0.9% 1,000 ML IV ONE ×2 (04:10→04:46)
[2024-05-13] MEDS ORDERED: NITROGLYCERIN 0.4 MG SL TAB SL PRN (05:30)
[2024-05-13] MEDS ORDERED: DEXTROSE (50%) 50ML SYRG IV PRN (06:00)
[2024-05-13] MEDS: LEVOTHYROXINE SODIUM 100 MCG TAB PO SCH (06:00)
[2024-05-13] MEDS ORDERED: ACETAMINOPHEN 325 MG TAB PO PRN (06:00)
[2024-05-13] MEDS: ACCU-CHEK COMFORT CURVE STRIP VI SCH (08:00)
[2024-05-13 08:16] LABS: Alanine Aminotransferase 18 U/L (7-40); Albumin 3.1 g/dL (3.2-4.8); Alkaline Phosphatase 153 U/L (46-116); Anion Gap 12 (5-15); Aspartate Aminotransferase 32 U/L (13-40); Bilirubin, Total 0.5 mg/dL (0.2-1.0); Calcium 8.4 mg/dL (8.7-10.4); Carbon Dioxide 18 mmol/L (20-31); Chloride 97 mmol/L (98-107); Potassium 4.6 mmol/L (3.5-5.1)
[2024-05-13 08:17] LABS: Total Protein 7.5 g/dL (5.7-8.2)
[2024-05-13 08:24] LABS: Sodium 127 mmol/L (136-145)
[2024-05-13 08:26] LABS: Blood Urea Nitrogen 88 mg/dL (9-23); Glucose 520 mg/dL (74-106)
[2024-05-13] MEDS: InsuLIN REG 1unit/0.01ml Soln (100units/ml) SC SCH (08:45)
[2024-05-13 09:46] LABS: Urine Bacteria FEW /hpf (None Seen); Urine Blood 3+ /uL (Negative); Urine Clarity Turbid (Clear); Urine Color Colorless (Yellow); Urine Protein, UAD 1+ (Negative); Urine Specific Gravity 1.011 (1.001-1.035); Urine Urobilinogen Normal (Negative); Urine WBC 347 /hpf (0 - 3); Urine WBC Clumps PRESENT /hpf (None Seen); Urine pH 5.5 (5.0-9.0)
[2024-05-13] MEDS: SODIUM CHLORIDE 0.9% 1,000 ML IV SCH (10:00)
[2024-05-13 10:02] LABS: Eosinophils # (auto) 0 10 ^3/uL (0-0.8); Lymphocytes # (auto) 0.9 10 ^3/uL (0.4-5.4); Monocytes # (auto) 1.2 10 ^3/uL (0-1.3); Neutrophils # (auto) 16.2 10 ^3/uL (1.6-8.6); Red Blood Cells 2.46 10^6/uL (4.5-5.90)
[2024-05-13 10:03] LABS: Basophils # (auto) 0 10 ^3/uL (0-0.2); Basophils % (auto) 0.2 % (0.0-2.0); Hematocrit 21.8 % (41.0-53.0); Mean Corpuscular Hemoglobin 27.3 pg (28.0-32.0); Mean Corpuscular Hgb Conc. 30.8 g/dL (32.0-36.0); Mean Corpuscular Volume 88.6 fL (80.0-100.0); Monocytes % (auto) 6.7 % (0.0-12.0); Neutrophils % (auto) 88.1 % (37.0-80.0); Platelet Count (auto) 145 10^3/uL (140-450); Red Cell Distribution Width 18.9 % (11.8-14.3); White Blood Cell 18.4 10^3/uL (4.4-10.8)
[2024-05-13 10:05] LABS: Hemoglobin 6.7 g/dL (13.5-17.5)
[2024-05-13 10:08] LABS: Chloride 96 mmol/L (98-107); Sodium 125 mmol/L (136-145)
[2024-05-13 10:09] LABS: Anion Gap 9 (5-15); Carbon Dioxide 20 mmol/L (20-31)
[2024-05-13 10:10] LABS: Calcium 8.7 mg/dL (8.7-10.4)
[2024-05-13 10:14] LABS: BUN/Creatinine Ratio 24.9 (10.0-20.0)
[2024-05-13 10:34] LABS: Blood Urea Nitrogen 84 mg/dL (9-23); Glucose 551 mg/dL (74-106)
[2024-05-13 12:12] LABS: % Iron Saturation 23.8 % (20-55)
[2024-05-13 12:20] LABS: INR 1.79 (0.9-1.15); Partial Thromboplastin Time 34.8 SEC (24.5-34.5); Prothrombin Time 18.2 sec (9.3-11.8)
[2024-05-13] MEDS: HEPARIN SODIUM (PORCINE) 5000 UNITS/ML 1ML VIAL IV ONE (13:34)
[2024-05-13] MEDS: HEPARIN DRIP/D5W 100UNITS/ML 250 ML IV SCH (13:43)
[2024-05-13] MEDS ORDERED: InsuLIN REG 1unit/0.01ml Soln (100units/ml) IV ONE (16:00)
[2024-05-13 16:41] LABS: Basophils # (auto) 0 10 ^3/uL (0-0.2); Basophils % (auto) 0.2 % (0.0-2.0); Eosinophils # (auto) 0 10 ^3/uL (0-0.8); Hemoglobin 7.8 g/dL (13.5-17.5); Monocytes # (auto) 0.5 10 ^3/uL (0-1.3); Nucleated Red Blood Cells % 0.1 %; White Blood Cell 17.2 10^3/uL (4.4-10.8)
[2024-05-13 16:43] LABS: Hematocrit 25.2 % (41.0-53.0); Lymphocytes % (auto) 5.7 % (10.0-50.0); Mean Corpuscular Hemoglobin 28.3 pg (28.0-32.0); Mean Corpuscular Hgb Conc. 30.9 g/dL (32.0-36.0); Mean Corpuscular Volume 91.7 fL (80.0-100.0); Monocytes % (auto) 2.7 % (0.0-12.0); Neutrophils # (auto) 15.7 10 ^3/uL (1.6-8.6); Neutrophils % (auto) 91.4 % (37.0-80.0); Platelet Count (auto) 131 10^3/uL (140-450); Red Blood Cells 2.75 10^6/uL (4.5-5.90)
[2024-05-13 20:26] LABS: INR 1.77 (0.9-1.15); Partial Thromboplastin Time 61.7 SEC (24.5-34.5)
[2024-05-13] MEDS: ATORVASTATIN 20 MG TAB PO SCH (22:53)
[2024-05-13] MEDS: MEROPENEM 500MG IVPB 50 ML IV SCH (22:53)
[2024-05-14] MEDS ORDERED: cefTRIAXone 1GM/50ML D5W 50 ML IV SCH (03:00)
[2024-05-14] MEDS: ONDANSETRON HCL 4 MG/2 ML VIAL IV PRN (03:04)
[2024-05-14] MEDS: HEPARIN DRIP/D5W 100UNITS/ML 250 ML IV SCH (03:16)
[2024-05-14 05:39] LABS: Basophils # (auto) 0.1 10 ^3/uL (0-0.2); Basophils % (auto) 0.3 % (0.0-2.0); Eosinophils # (auto) 0.1 10 ^3/uL (0-0.8); Eosinophils % (auto) 0.5 % (0.0-7.0); Hematocrit 27.4 % (41.0-53.0); Hemoglobin 8.5 g/dL (13.5-17.5); Lymphocytes # (auto) 1.7 10 ^3/uL (0.4-5.4); Lymphocytes % (auto) 8.4 % (10.0-50.0); Mean Corpuscular Hemoglobin 28.1 pg (28.0-32.0); Mean Corpuscular Volume 90.5 fL (80.0-100.0); Monocytes # (auto) 1.7 10 ^3/uL (0-1.3); Monocytes % (auto) 8.3 % (0.0-12.0); Neutrophils # (auto) 16.4 10 ^3/uL (1.6-8.6); Neutrophils % (auto) 82.5 % (37.0-80.0); Nucleated Red Blood Cells % 0.1 %; Platelet Count (auto) 125 10^3/uL (140-450); Red Blood Cells 3.03 10^6/uL (4.5-5.90); Red Cell Distribution Width 18.7 % (11.8-14.3); White Blood Cell 19.9 10^3/uL (4.4-10.8)
[2024-05-14 05:41] LABS: Chloride 104 mmol/L (98-107); Potassium 4.8 mmol/L (3.5-5.1)
[2024-05-14 05:42] LABS: Anion Gap 8 (5-15); Carbon Dioxide 19 mmol/L (20-31)
[2024-05-14 05:43] LABS: Calcium 8.9 mg/dL (8.7-10.4)
[2024-05-14 05:48] LABS: BUN/Creatinine Ratio 21.8 (10.0-20.0)
[2024-05-14 05:54] LABS: Blood Urea Nitrogen 56 mg/dL (9-23); Glucose 256 mg/dL (74-106); Sodium 131 mmol/L (136-145)
[2024-05-14] MEDS: ASPirin-EC 325mg tab PO ONE (06:54)
[2024-05-14 08:00] VITALS: PULSE 80; RESP 16; O2SAT 97
[2024-05-14 09:41] LABS: INR 1.72 (0.9-1.15); Partial Thromboplastin Time 65.4 SEC (24.5-34.5); Prothrombin Time 17.5 sec (9.3-11.8)
[2024-05-14] MEDS: ASPirin-EC 81 mg tab PO SCH (10:46)
[2024-05-14] MEDS: INSULIN LANTUS (GLARGINE) 1 /0.01ml (100units/ml) SC SCH (10:46)
[2024-05-14 11:55] VITALS: BP 128/63; PULSE 71; RESP 18; TEMP 97.4; O2SAT 99
[2024-05-14] MEDS ORDERED: BUME2TAB5 PO (12:45)
[2024-05-14] MEDS ORDERED: POM INH (12:51)
[2024-05-14] MEDS: FERROUS SULFATE 325mg EC TAB PO SCH (13:14)
[2024-05-14] MEDS: SODIUM BICARBONATE 650 MG TAB PO SCH (13:14)
[2024-05-14] MEDS: SODIUM CHLORIDE 0.9% 1,000 ML IV SCH (13:14)
[2024-05-14 17:00] VITALS: BP 108/53; PULSE 76; RESP 19; TEMP 98; O2SAT 98
[2024-05-14] MEDS: LACTULOSE 20Gm/30ML SOLN PO ONE (17:25)
[2024-05-14 20:00] VITALS: PULSE 68; PULSE 78; RESP 19; O2SAT 99
[2024-05-14 21:00] VITALS: BP 112/45; PULSE 65; RESP 19; TEMP 98.3; O2SAT 99
[2024-05-14] MEDS: HYDROcodone-ACET 5/325MG TAB PO PRN (21:09)
[2024-05-14] MEDS: LACTULOSE 20Gm/30ML SOLN PO SCH (22:12)
[2024-05-15] VITALS (10 sets, daily range): BP systolic 95–114; BP diastolic 42–85; PULSE 67–90; RESP 14–20; TEMP 97.4–98.4; O2SAT 96–100
[2024-05-15] MEDS: ASPirin 81 mg TAB PO ONE (07:50)
[2024-05-15 11:34] LABS: Eosinophils # (auto) 0.2 10 ^3/uL (0-0.8); Hemoglobin 7.3 g/dL (13.5-17.5); Mean Corpuscular Hgb Conc. 29.8 g/dL (32.0-36.0); Nucleated Red Blood Cells % 0.1 %
[2024-05-15 11:36] LABS: Basophils # (auto) 0 10 ^3/uL (0-0.2); Basophils % (auto) 0.2 % (0.0-2.0); Eosinophils % (auto) 1.2 % (0.0-7.0); Hematocrit 24.5 % (41.0-53.0); Lymphocytes % (auto) 6.8 % (10.0-50.0); Mean Corpuscular Hemoglobin 28.2 pg (28.0-32.0); Mean Corpuscular Volume 94.6 fL (80.0-100.0); Monocytes # (auto) 0.9 10 ^3/uL (0-1.3); Monocytes % (auto) 6.1 % (0.0-12.0); Neutrophils % (auto) 85.7 % (37.0-80.0); Platelet Count (auto) 124 10^3/uL (140-450); Red Blood Cells 2.59 10^6/uL (4.5-5.90); Red Cell Distribution Width 20.1 % (11.8-14.3); White Blood Cell 15.2 10^3/uL (4.4-10.8)
[2024-05-15 11:42] LABS: Chloride 109 mmol/L (98-107); Potassium 5.4 mmol/L (3.5-5.1)
[2024-05-15 11:43] LABS: Anion Gap 6 (5-15); Carbon Dioxide 21 mmol/L (20-31)
[2024-05-15 11:44] LABS: Calcium 8.6 mg/dL (8.7-10.4)
[2024-05-15 11:48] LABS: Glucose 195 mg/dL (74-106)
[2024-05-15 11:49] LABS: BUN/Creatinine Ratio 27.2 (10.0-20.0); Blood Urea Nitrogen 52 mg/dL (9-23)
[2024-05-15] MEDS: MORPHINE SULFATE INJ 2 MG/ml SYRG IV PRN (12:04)
[2024-05-15 12:10] LABS: Sodium 136 mmol/L (136-145)
[2024-05-15] MEDS: SODIUM CHLORIDE 0.9% 1,000 ML IV SCH (14:00)
[2024-05-15] MEDS: SODIUM BICARB 8.4% 50Meq/50ml SYR Vial IV ONE (14:34)
[2024-05-15] MEDS: FUROSEMIDE 20 MG/2 ML VIAL IV ONE (14:35)
[2024-05-15] MEDS ORDERED: MIDAZOLAM HCL 2MG/2ML 2ml VIAL (1mg/ml) ONE (17:52)
[2024-05-15] MEDS ORDERED: KETAMINE 50mg/ML 1ml syringe ONE (17:52)
[2024-05-15] MEDS ORDERED: GLYCOPYRROLATE 0.2 MG/ML 1ML VIAL ONE (17:53)
[2024-05-15] MEDS ORDERED: ONDANSETRON HCL 4 MG/2 ML VIAL ONE (17:53)
[2024-05-15] MEDS ORDERED: PROPOFOL 10 MG/ML 20 ML IV ONE (17:53)
[2024-05-15] MEDS ORDERED: ceFAZolin 1GM VL ONE (18:02)
[2024-05-15] MEDS ORDERED: fentaNYL CITRATE 100 MCG/2 ML VL ONE (18:08)
[2024-05-15] MEDS: ACCU-CHEK COMFORT CURVE STRIP VI ONE (19:00)
[2024-05-15] MEDS ORDERED: HYDROmorphone HCL 2 MG/ML VL/or syr IV PRN (19:00)
[2024-05-15] MEDS: ONDANSETRON HCL 4 MG/2 ML VIAL IV ONE (19:00)
[2024-05-15] MEDS: LIDOCAINE W/ EPINEPHRINE 2% INJ 20ML VIAL ONE (19:18)
[2024-05-15] MEDS: MEROPENEM 1GM IVPB 50 ML IV SCH (21:44)
[2024-05-16] VITALS (17 sets, daily range): BP systolic 92–118; BP diastolic 38–66; PULSE 70–99; RESP 16–19; TEMP 97.5–98.8; O2SAT 93–98
[2024-05-16 07:19] LABS: Basophils # (auto) 0.1 10 ^3/uL (0-0.2); Basophils % (auto) 0.4 % (0.0-2.0); Eosinophils # (auto) 0.2 10 ^3/uL (0-0.8); White Blood Cell 13.7 10^3/uL (4.4-10.8)
[2024-05-16 07:21] LABS: Eosinophils % (auto) 1.5 % (0.0-7.0); Hematocrit 21.4 % (41.0-53.0); Lymphocytes # (auto) 1.4 10 ^3/uL (0.4-5.4); Lymphocytes % (auto) 10.4 % (10.0-50.0); Mean Corpuscular Hemoglobin 28.4 pg (28.0-32.0); Mean Corpuscular Hgb Conc. 31.9 g/dL (32.0-36.0); Mean Corpuscular Volume 89.1 fL (80.0-100.0); Monocytes % (auto) 7.4 % (0.0-12.0); Neutrophils % (auto) 80.3 % (37.0-80.0); Platelet Count (auto) 118 10^3/uL (140-450); Red Cell Distribution Width 18.8 % (11.8-14.3)
[2024-05-16 07:23] LABS: Chloride 109 mmol/L (98-107); Potassium 5.4 mmol/L (3.5-5.1); Sodium 137 mmol/L (136-145)
[2024-05-16 07:24] LABS: Anion Gap 4 (5-15); Calcium 8.7 mg/dL (8.7-10.4); Carbon Dioxide 24 mmol/L (20-31)
[2024-05-16 07:29] LABS: BUN/Creatinine Ratio 31.5 (10.0-20.0); Blood Urea Nitrogen 57 mg/dL (9-23); Glucose 216 mg/dL (74-106)
[2024-05-16 07:30] LABS: Hemoglobin 6.8 g/dL (13.5-17.5)
[2024-05-16] MEDS: ASPirin 81 mg TAB PO SCH (08:23)
[2024-05-16] MEDS: AMPICILLIN INJ 1 GM in SODIUM CHL 0.9% 100 ML IV SCH (10:37)
[2024-05-16] MEDS: PANTOPRAZOLE 40 MG TAB PO SCH (11:54)
[2024-05-16] MEDS: SODIUM ZIRCONIUM CYCL 10 GM PAK PO ONE (11:54)
[2024-05-16] MEDS: FUROSEMIDE 20 MG/2 ML VIAL IV ONE (18:32)
[2024-05-16] MEDS: INSULIN LANTUS (GLARGINE) 1 /0.01ml (100units/ml) SC SCH (21:35)
[2024-05-17] VITALS (8 sets, daily range): BP systolic 95–110; BP diastolic 47–75; PULSE 72–82; RESP 14–18; TEMP 97.4–98.1; O2SAT 93–99
[2024-05-17 06:45] LABS: Basophils # (auto) 0.1 10 ^3/uL (0-0.2); Basophils % (auto) 0.4 % (0.0-2.0); Eosinophils # (auto) 0.3 10 ^3/uL (0-0.8); Hematocrit 25.5 % (41.0-53.0); Hemoglobin 8.4 g/dL (13.5-17.5); Lymphocytes # (auto) 1.7 10 ^3/uL (0.4-5.4); Lymphocytes % (auto) 11.5 % (10.0-50.0); Mean Corpuscular Hemoglobin 28.5 pg (28.0-32.0); Mean Corpuscular Hgb Conc. 32.8 g/dL (32.0-36.0); Monocytes # (auto) 1.3 10 ^3/uL (0-1.3); Monocytes % (auto) 8.8 % (0.0-12.0); Neutrophils # (auto) 11.6 10 ^3/uL (1.6-8.6); Neutrophils % (auto) 77.3 % (37.0-80.0); Nucleated Red Blood Cells % 0.1 %; Platelet Count (auto) 110 10^3/uL (140-450); Red Blood Cells 2.93 10^6/uL (4.5-5.90); Red Cell Distribution Width 17.5 % (11.8-14.3)
[2024-05-17 06:48] LABS: Anion Gap 6 (5-15); Carbon Dioxide 23 mmol/L (20-31); Chloride 106 mmol/L (98-107); Potassium 4.8 mmol/L (3.5-5.1); Sodium 135 mmol/L (136-145)
[2024-05-17 06:50] LABS: Calcium 8.7 mg/dL (8.7-10.4)
[2024-05-17 06:55] LABS: BUN/Creatinine Ratio 27.4 (10.0-20.0); Blood Urea Nitrogen 49 mg/dL (9-23); Glucose 145 mg/dL (74-106)
[2024-05-17] MEDS ORDERED: DEXTROSE (50%) 50ML SYRG IV PRN (09:15)
[2024-05-17] MEDS ORDERED: INSULIN LANTUS (GLARGINE) 1 /0.01ml (100units/ml) SC SCH (10:00)
[2024-05-17] MEDS: ACCU-CHEK COMFORT CURVE STRIP VI SCH (11:14)
[2024-05-17] MEDS: InsuLIN REG 1unit/0.01ml Soln (100units/ml) SC SCH ×2 (11:14→21:34)
[2024-05-18] VITALS (10 sets, daily range): BP systolic 99–123; BP diastolic 45–63; PULSE 64–85; RESP 17–21; TEMP 97.7–98.6; O2SAT 96–100
[2024-05-18 06:19] LABS: Basophils # (auto) 0.1 10 ^3/uL (0-0.2); Basophils % (auto) 0.4 % (0.0-2.0); Eosinophils # (auto) 0.2 10 ^3/uL (0-0.8); Eosinophils % (auto) 1.6 % (0.0-7.0); Hematocrit 24.6 % (41.0-53.0); Hemoglobin 7.9 g/dL (13.5-17.5); Lymphocytes # (auto) 1.6 10 ^3/uL (0.4-5.4); Lymphocytes % (auto) 11.8 % (10.0-50.0); Mean Corpuscular Hemoglobin 28.4 pg (28.0-32.0); Mean Corpuscular Hgb Conc. 32.2 g/dL (32.0-36.0); Mean Corpuscular Volume 88.1 fL (80.0-100.0); Monocytes # (auto) 1.1 10 ^3/uL (0-1.3); Monocytes % (auto) 8.2 % (0.0-12.0); Neutrophils # (auto) 10.8 10 ^3/uL (1.6-8.6); Platelet Count (auto) 101 10^3/uL (140-450); Red Cell Distribution Width 17.7 % (11.8-14.3); White Blood Cell 13.8 10^3/uL (4.4-10.8)
[2024-05-18 06:24] LABS: Anion Gap 5 (5-15); Carbon Dioxide 22 mmol/L (20-31); Chloride 108 mmol/L (98-107); Sodium 135 mmol/L (136-145)
[2024-05-18 06:25] LABS: Calcium 8.5 mg/dL (8.7-10.4)
[2024-05-18 06:30] LABS: BUN/Creatinine Ratio 26.1 (10.0-20.0); Blood Urea Nitrogen 42 mg/dL (9-23); Glucose 131 mg/dL (74-106)
[2024-05-18] MEDS ORDERED: DEXTROSE (50%) 50ML SYRG IV PRN (10:30)
[2024-05-18] MEDS: InsuLIN REG 1unit/0.01ml Soln (100units/ml) SC SCH (13:18)
[2024-05-18] MEDS: ACCU-CHEK COMFORT CURVE STRIP VI SCH (13:19)
[2024-05-18] MEDS: GADOTERATE MEG 10 MMOL/20ml INJ (0.5MMOL/ml) IV ONE (17:09)
[2024-05-19] VITALS (17 sets, daily range): BP systolic 96–131; BP diastolic 45–64; PULSE 60–89; RESP 16–20; TEMP 97.2–98.6; O2SAT 99–100
[2024-05-19 05:43] LABS: Chloride 105 mmol/L (98-107); Potassium 4.5 mmol/L (3.5-5.1); Sodium 132 mmol/L (136-145)
[2024-05-19 05:44] LABS: Anion Gap 5 (5-15); Calcium 8.3 mg/dL (8.7-10.4); Carbon Dioxide 22 mmol/L (20-31)
[2024-05-19 05:49] LABS: BUN/Creatinine Ratio 28.3 (10.0-20.0); Blood Urea Nitrogen 41 mg/dL (9-23); Glucose 156 mg/dL (74-106)
[2024-05-19 06:05] LABS: Basophils # (auto) 0.1 10 ^3/uL (0-0.2); Basophils % (auto) 0.9 % (0.0-2.0); Eosinophils # (auto) 0.8 10 ^3/uL (0-0.8); Eosinophils % (auto) 5.6 % (0.0-7.0); Hematocrit 23.1 % (41.0-53.0); Hemoglobin 7.4 g/dL (13.5-17.5); Lymphocytes # (auto) 1.3 10 ^3/uL (0.4-5.4); Lymphocytes % (auto) 9.4 % (10.0-50.0); Mean Corpuscular Hemoglobin 29.1 pg (28.0-32.0); Mean Corpuscular Hgb Conc. 31.8 g/dL (32.0-36.0); Mean Corpuscular Volume 91.6 fL (80.0-100.0); Monocytes # (auto) 1.1 10 ^3/uL (0-1.3); Monocytes % (auto) 7.4 % (0.0-12.0); Neutrophils % (auto) 76.7 % (37.0-80.0); Nucleated Red Blood Cells % 0.2 %; Platelet Count (auto) 147 10^3/uL (140-450); Red Blood Cells 2.53 10^6/uL (4.5-5.90); Red Cell Distribution Width 18.3 % (11.8-14.3); White Blood Cell 14.3 10^3/uL (4.4-10.8)
[2024-05-19] MEDS: LIDOCAINE 2% JELLY 11ml (GLYDO) ONE (12:03)
[2024-05-19 20:31] LABS: Hemoglobin 8.1 g/dL (13.5-17.5)
[2024-05-19 20:36] LABS: Hematocrit 24.7 % (41.0-53.0)
[2024-05-19 20:45] LABS: INR 1.47 (0.9-1.15); Partial Thromboplastin Time 34.2 SEC (24.5-34.5); Prothrombin Time 15.1 sec (9.3-11.8)
[2024-05-20] VITALS (12 sets, daily range): BP systolic 99–126; BP diastolic 50–67; PULSE 20–89; RESP 18–20; TEMP 97.6–98.3; O2SAT 97–100
[2024-05-20 06:39] LABS: Basophils # (auto) 0.1 10 ^3/uL (0-0.2); Basophils % (auto) 0.6 % (0.0-2.0); Eosinophils # (auto) 0.3 10 ^3/uL (0-0.8); Lymphocytes # (auto) 1.3 10 ^3/uL (0.4-5.4); Monocytes # (auto) 1.1 10 ^3/uL (0-1.3); Neutrophils # (auto) 9.4 10 ^3/uL (1.6-8.6)
[2024-05-20 06:42] LABS: Eosinophils % (auto) 2.7 % (0.0-7.0); Hematocrit 24.2 % (41.0-53.0); Mean Corpuscular Hemoglobin 29.6 pg (28.0-32.0); Mean Corpuscular Hgb Conc. 33.1 g/dL (32.0-36.0); Mean Corpuscular Volume 89.4 fL (80.0-100.0); Monocytes % (auto) 9.2 % (0.0-12.0); Neutrophils % (auto) 76.5 % (37.0-80.0); Platelet Count (auto) 90 10^3/uL (140-450); Red Blood Cells 2.71 10^6/uL (4.5-5.90); Red Cell Distribution Width 16.3 % (11.8-14.3); White Blood Cell 12.2 10^3/uL (4.4-10.8)
[2024-05-20] MEDS: SODIUM CHLORIDE 0.9% 1,000 ML IV SCH (16:15)
[2024-05-20 16:27] LABS: Alanine Aminotransferase 22 U/L (7-40); Albumin 2.9 g/dL (3.2-4.8); Alkaline Phosphatase 170 U/L (46-116); Anion Gap 5 (5-15); Aspartate Aminotransferase 44 U/L (13-40); Bilirubin, Total 1.3 mg/dL (0.2-1.0); Calcium 8.5 mg/dL (8.7-10.4); Carbon Dioxide 21 mmol/L (20-31); Chloride 109 mmol/L (98-107); Glucose 171 mg/dL (74-106); Potassium 4.7 mmol/L (3.5-5.1); Sodium 135 mmol/L (136-145); Total Protein 6.8 g/dL (5.7-8.2)
[2024-05-20 16:29] LABS: Blood Urea Nitrogen 31 mg/dL (9-23)
[2024-05-21] VITALS (8 sets, daily range): BP systolic 95–120; BP diastolic 40–73; PULSE 70–89; RESP 18–20; TEMP 97.5–98.3; O2SAT 95–99
[2024-05-21 06:05] LABS: Basophils # (auto) 0.1 10 ^3/uL (0-0.2); Eosinophils # (auto) 0.2 10 ^3/uL (0-0.8); Lymphocytes # (auto) 1.3 10 ^3/uL (0.4-5.4); Lymphocytes % (auto) 9.9 % (10.0-50.0); Monocytes # (auto) 1.2 10 ^3/uL (0-1.3)
[2024-05-21 06:08] LABS: Basophils % (auto) 0.7 % (0.0-2.0); Eosinophils % (auto) 1.8 % (0.0-7.0); Hematocrit 25.3 % (41.0-53.0); Hemoglobin 8.2 g/dL (13.5-17.5); Mean Corpuscular Hemoglobin 29.3 pg (28.0-32.0); Mean Corpuscular Hgb Conc. 32.5 g/dL (32.0-36.0); Mean Corpuscular Volume 90.1 fL (80.0-100.0); Monocytes % (auto) 8.6 % (0.0-12.0); Neutrophils # (auto) 10.8 10 ^3/uL (1.6-8.6); Platelet Count (auto) 102 10^3/uL (140-450); Red Blood Cells 2.81 10^6/uL (4.5-5.90); Red Cell Distribution Width 16.5 % (11.8-14.3); White Blood Cell 13.6 10^3/uL (4.4-10.8)
[2024-05-21 06:27] LABS: Anion Gap 7 (5-15); Calcium 8.3 mg/dL (8.7-10.4); Carbon Dioxide 20 mmol/L (20-31); Chloride 108 mmol/L (98-107); Potassium 4.2 mmol/L (3.5-5.1); Sodium 135 mmol/L (136-145)
[2024-05-21 06:33] LABS: BUN/Creatinine Ratio 25.8 (10.0-20.0); Blood Urea Nitrogen 31 mg/dL (9-23); Glucose 149 mg/dL (74-106)
[2024-05-21 08:06] LABS: AFP Serum Tumor Marker <1.8 ng/mL (0.0-8.4); PSA Free <0.02 ng/mL; Prostate Specific Antigen 0.1 ng/mL (0.0-4.0)
[2024-05-22] VITALS (8 sets, daily range): BP systolic 85–126; BP diastolic 36–66; PULSE 69–96; RESP 1–23; TEMP 97.5–98.5; O2SAT 95–100
[2024-05-22 06:20] LABS: Basophils # (auto) 0.1 10 ^3/uL (0-0.2); Basophils % (auto) 0.6 % (0.0-2.0); Eosinophils # (auto) 0.4 10 ^3/uL (0-0.8); Eosinophils % (auto) 2.3 % (0.0-7.0); Hematocrit 28.6 % (41.0-53.0); Hemoglobin 8.7 g/dL (13.5-17.5); Lymphocytes # (auto) 1.4 10 ^3/uL (0.4-5.4); Mean Corpuscular Hemoglobin 28.6 pg (28.0-32.0); Mean Corpuscular Hgb Conc. 30.3 g/dL (32.0-36.0); Mean Corpuscular Volume 94.3 fL (80.0-100.0); Monocytes # (auto) 1.4 10 ^3/uL (0-1.3); Monocytes % (auto) 8.9 % (0.0-12.0); Neutrophils # (auto) 12.6 10 ^3/uL (1.6-8.6); Neutrophils % (auto) 79.2 % (37.0-80.0); Platelet Count (auto) 107 10^3/uL (140-450); Red Blood Cells 3.03 10^6/uL (4.5-5.90); Red Cell Distribution Width 17.6 % (11.8-14.3); White Blood Cell 15.9 10^3/uL (4.4-10.8)
[2024-05-22 06:25] LABS: INR 1.48 (0.9-1.15); Partial Thromboplastin Time 33.4 SEC (24.5-34.5); Prothrombin Time 15.2 sec (9.3-11.8)
[2024-05-22 06:27] LABS: Alanine Aminotransferase 24 U/L (7-40); Albumin 2.8 g/dL (3.2-4.8); Alkaline Phosphatase 191 U/L (46-116); Anion Gap 7 (5-15); Aspartate Aminotransferase 47 U/L (13-40); Blood Urea Nitrogen 27 mg/dL (9-23); Calcium 8.5 mg/dL (8.7-10.4); Carbon Dioxide 19 mmol/L (20-31); Chloride 110 mmol/L (98-107); Glucose 127 mg/dL (74-106); Potassium 4.3 mmol/L (3.5-5.1); Sodium 136 mmol/L (136-145); Total Protein 6.8 g/dL (5.7-8.2)
[2024-05-22] MEDS: IOHEXOL 300 MG/ML 100ML BOTTLE IJ ONE (09:26)
[2024-05-22] MEDS: MIDAZOLAM HCL 2MG/2ML 2ml VIAL (1mg/ml) ONE (09:52)
[2024-05-22] MEDS: fentaNYL CITRATE 100 MCG/2 ML VL ONE (09:52)
[2024-05-22] MEDS: GELATIN 1 SPONGE SIZE 100 TOP ONE (10:01)
[2024-05-23] VITALS (10 sets, daily range): BP systolic 107–129; BP diastolic 53–65; PULSE 64–81; RESP 16–20; TEMP 97.8–98.7; O2SAT 91–100
[2024-05-23] MEDS: MORPHINE SULFATE INJ 2 MG/ml SYRG IV PRN (05:36)
[2024-05-23] MEDS ORDERED: ASPI1TAB19 PO (10:25)
[2024-05-23] MEDS ORDERED: APIX2.5T PO (10:25)
[2024-05-24 01:00] VITALS: BP 101/58; PULSE 71; RESP 16; TEMP 97.8; O2SAT 100
[2024-05-24 05:00] VITALS: BP 103/52; PULSE 79; RESP 17; TEMP 97.9; O2SAT 100
[2024-05-24 08:00] VITALS: PULSE 80; RESP 20
[2024-05-24 08:40] VITALS: BP 109/58; PULSE 76; RESP 22; TEMP 98.3; O2SAT 100
[2024-05-24] MEDS ORDERED: fentaNYL CITRATE 100 MCG/2 ML VL IV ONE (09:30)
[2024-05-24] MEDS ORDERED: MIDAZOLAM HCL 2MG/2ML 2ml VIAL (1mg/ml) IV ONE (09:30)
[2024-05-24] MEDS ORDERED: LIDOCAINE 2%HCL (LOCAL ANESTH.) INJ 10ml MDV ONE (09:42)
[2024-05-24 12:40] VITALS: BP 112/55; PULSE 75; RESP 20; TEMP 97.8; O2SAT 100
== END 2024-05-24 15:14 | disposition home health service (06) | DRG 871 ==
LOC: ER 23:11 → TELE 05-13 05:45 → TELE-CENTR 05-14 11:21
PROVIDERS: ADMIT Internal Medicine; ATTEND Internal Medicine Geriatric Medicine
PROC: 30233N1 Transfusion of Nonautologous Red Blood Cells into Peripheral Vein, Percutaneous Approach (ICD-10-PCS; 2024-05-13)
PROC: 0T9B30Z Drainage of Bladder with Drainage Device, Percutaneous Approach (ICD-10-PCS; principal; 2024-05-15 17:56)
PROC: 30233K1 Transfusion of Nonautologous Frozen Plasma into Peripheral Vein, Percutaneous Approach (ICD-10-PCS; 2024-05-19)
PROC: 0FB23ZX Excision of Left Lobe Liver, Percutaneous Approach, Diagnostic (ICD-10-PCS; 2024-05-22)
PROC: 0GB23ZX Excision of Left Adrenal Gland, Percutaneous Approach, Diagnostic (ICD-10-PCS; 2024-05-24)
DX: A41.81 Sepsis due to Enterococcus (principal); I21.4 Non-ST elevation (NSTEMI) myocardial infarction; R65.21 Severe sepsis with septic shock; N17.9 Acute kidney failure, unspecified; I13.0 Hypertensive heart and chronic kidney disease with heart failure and stage 1 through stage 4 chronic kidney disease, or unspecified chronic kidney disease; I50.30 Unspecified diastolic (congestive) heart failure; C78.7 Secondary malignant neoplasm of liver and intrahepatic bile duct; E87.1 Hypo-osmolality and hyponatremia; J96.10 Chronic respiratory failure, unspecified whether with hypoxia or hypercapnia; N30.01 Acute cystitis with hematuria; N13.8 Other obstructive and reflux uropathy; E11.22 Type 2 diabetes mellitus with diabetic chronic kidney disease; E78.5 Hyperlipidemia, unspecified; I25.10 Atherosclerotic heart disease of native coronary artery without angina pectoris; E66.01 Morbid (severe) obesity due to excess calories; J44.9 Chronic obstructive pulmonary disease, unspecified; E87.5 Hyperkalemia; E03.9 Hypothyroidism, unspecified; D69.6 Thrombocytopenia, unspecified; R33.8 Other retention of urine; N40.1 Benign prostatic hyperplasia with lower urinary tract symptoms; I44.7 Left bundle-branch block, unspecified; E11.42 Type 2 diabetes mellitus with diabetic polyneuropathy; I48.0 Paroxysmal atrial fibrillation; N32.0 Bladder-neck obstruction; N18.32 Chronic kidney disease, stage 3b; N31.9 Neuromuscular dysfunction of bladder, unspecified; D50.9 Iron deficiency anemia, unspecified; N36.8 Other specified disorders of urethra; R79.1 Abnormal coagulation profile; R77.1 Abnormality of globulin; R16.0 Hepatomegaly, not elsewhere classified; Z99.81 Dependence on supplemental oxygen; Z95.1 Presence of aortocoronary bypass graft; Z90.49 Acquired absence of other specified parts of digestive tract; Z79.899 Other long term (current) drug therapy; Z79.01 Long term (current) use of anticoagulants; Z79.4 Long term (current) use of insulin; Z80.3 Family history of malignant neoplasm of breast; Z68.38 Body mass index [BMI] 38.0-38.9, adult
CPT/HCPCS: 10005; 36415; 71045; 71250; 74176; 74178; 74181; 76705; 76775; 76942; 77012; 80048; 80053; 81001; 82105; 82378; 82962; 83036; 83540; 83550; 83605; 83615; 83690; 83735; 84132; 84154; 84443; 84484; 85014; 85018; 85025; 85379; 85610; 85730; 86301; 86850; 86900; 86901; 86920; 87040; 87086; 87088; 87186; 93005; 93306; 93970; 94640; 97110; 97116; 97163; 97530; 99291; G0378; J0690; J1815; J2003; J2185; J2250; J2405; J2704